=== PATIENT | female | born 1960 | race Caucasian/White ===

== ENCOUNTER 2023-09-01 09:45 | Outpatient (RCR) | payer OTHER, SELFPAY ==
--- NOTE | 2023-06-22 10:25 | PT.OIE ---
Current Diagnoses Lateral epicondylitis, right elbow (06/22/23) Difficulty in walking, not elsewhere classified (06/22/23) Abnormal posture (06/22/23) Weakness (06/22/23) Visit Care Team Role Provider Type Ynes Wild PA-C Family Provider Advanced Patient Centered Care Specialist Primary Care Provider Specialty: Medical Address: [address] [place] [address], [id number] Email: Oscar Engle MD Attending Provider Physician Referring Provider Specialty: Orthopedics Orthopedic Surgery Address: [address] [place] [address], [address] Email: [email or web address] Physical Therapy Initial Evaluation PT-OP-A Visit Information Start: 06/09/23 13:31 Freq: Status: Active Protocol: Document 06/22/23 09:03 [facility] (Rec: 06/22/23 10:23 [facility] [id number]) Out-Patient Physical Therapy Visit Information Visit Information Visit Type Initial Evaluation Visit Start Time 09:07 Visit Stop Time 10:05 Visit Number 1/6 Number of CLEANER WINDOW Visits 0 PT-OP-B Current Condition Start: 06/09/23 13:31 Freq: Status: Active Protocol: Document 06/22/23 09:03 [facility] (Rec: 06/22/23 10:23 [facility] [id number]) Current Condition History of Current Condition Onset Date 4-5 months Current Complaints R lat elbow pain History of Current Condition Pt reports gradual onset of R lat elbow pain that is worsening. She denies neck pain or R shoulder pain. She wants to pickle ball. 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 Her elbow wakes her in the night and straightening it out is painful. When walking the park without poles, then it starts aching and graually will bring it up into a sling position. no other treatment done. Xray done. 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 Does do strength training classes and it typically doesn't bother her and only a couple of moves that bother it. She only uses the 6lb bar. Pt has plates in wrist d/t ulna and radius fx about 20 years ago. Treatment Goals Patient/Caregiver Goals allievate the pain, be able to hike w/o pain, cook w/o pain, sleep w/o pain PT-OP-C Subjective Start: 06/09/23 13:31 Freq: Status: Active Protocol: Document 06/22/23 09:03 [facility] (Rec: 06/22/23 10:23 [facility] [id number]) Patient Questionnaires Quick Dash- Upper Extremity Quick Dash UE Score 31.8 OP-PT Pain Assessment Location R elbow Pain Location Details R lat elbow Intensity 8 Scale Used Numeric (0 - 10) Description Aching,Sharp,With Movement Description- Other swollen Frequency Intermittent Pain Duration 30 min after advil; 10-15 min if smaller flare Radiating Location occ tingling into post hand mostly lat (thumb and 1st finger)-sleeping Variations/Patterns tingling in lat elbow/forarm Pain Aggravating Factors Walking Other Pain Aggravating Factors trekking poles,@ night then straigthen from bent,chopping/ stirring,bar ex Other Pain Alleviating Factors advil, stretch PT-OP-F Manual Assessment Start: 06/09/23 13:31 Freq: Status: Active Protocol: Document 06/22/23 09:03 [facility] (Rec: 06/22/23 10:23 [facility] [id number]) Manual Assessments Soft Tissue Assessment Soft Tissue Mobility Assessment tenderness to lat epicondyle and extensor tendons &mm bellies; tenderness to triceps distally PT-OP-K Range of Motion Start: 06/09/23 13:31 Freq: Status: Active Protocol: Document 06/22/23 09:03 [facility] (Rec: 06/22/23 10:23 [facility] [id number]) Shoulder Goniometric Range of Motion Shoulder ROM Limitations Comments dec ER R; IR behind back painful R at T7; T5 L no pain; IR at 90 painful R Elbow/Forearm Range of Motion Elbow/Forearm Right Active Elbow Flexion (degrees) 141 Elbow Extension (degrees) 0 Pronation (degrees) 84 Supination (degrees) 92 Comments pain flex & pronation Left Active Elbow Flexion (degrees) 152 Elbow Hyperextension 2 Pronation (degrees) 90 Supination (degrees) 94 Wrist Goniometric Range of Motion ROM Limitations Comments WFL R but pain w/radial deviation and ext of wrist PT-OP-L Special Tests Start: 06/09/23 13:31 Freq: Status: Active Protocol: Document 06/22/23 09:03 [facility] (Rec: 06/22/23 10:23 [facility] [id number]) Special Tests Elbow Special Tests 3rd digit ext Comments neg cozens Comments positive Medeiros Comments positve Neural Special Tests- Upper Body Median Nerve Tension Test Results R positive Radial Nerve Tension Comments neg R Ulnar Nerve Tension Comments neg R PT-OP-M Strength Start: 06/09/23 13:31 Freq: Status: Active Protocol: Document 06/22/23 09:03 [facility] (Rec: 06/22/23 10:23 [facility] [id number]) Shoulder Strength Shoulder Manual Muscle Testing Right Flexion 4+ Good+ Extension 4+ Good+ Abduction (C5) 4+ Good+ External Rotation 3+ Fair+ Internal Rotation 4- Good- Comments pain w/rotations Left Flexion 5 Normal Extension 5 Normal Abduction (C5) 5 Normal External Rotation 4- Good- Internal Rotation 5 Normal Elbow/Forearm Strength Elbow and Forearm Manual Muscle Testing Right Flexion (C6) 5 Normal Extension (C7) 3+ Fair+ Pronation 4- Good- Supination 5 Normal Comments pain w/flex in pronation but not in supination; pain w/ pronation Left Flexion (C6) 5 Normal Extension (C7) 5 Normal Pronation 5 Normal Supination 5 Normal Wrist Strength Wrist Manual Muscle Testing Right Flexion (C7) 4 Good Extension (C6) 3+ Fair+ Ulnar Deviation 5 Normal Radial Deviation 3+ Fair+ Comments pain ext and radial deviation Left Flexion (C7) 5 Normal Extension (C6) 5 Normal Ulnar Deviation 5 Normal Radial Deviation 5 Normal Hand Senior Ios Software Engineer/Pinch Strength Hand Dominance Hand Dominance Right Hand Strength Right Comments 12 kg, 9 kg pain Left Comments 25kg, 22kg PT-OP-R Modalities Start: 06/09/23 13:31 Freq: Status: Active Protocol: Document 06/22/23 09:03 [facility] (Rec: 06/22/23 10:23 [facility] [id number]) Hot Pack/Cold Pack Treatment Cold Pack Location R elbow PT-OP-T Assessment and Plan Start: 06/09/23 13:31 Freq: Status: Active Protocol: Document 06/22/23 09:03 [facility] (Rec: 06/22/23 10:23 [facility] [id number]) Physical Therapy Assessment Rehab Potential Rehabilitation Potential Good Evaluation Complexity Number of Personal Factors/Comorbidities 1-2 Number of Body Systems Impaired 4 or More Clinical Presentation at Evaluation Evolving Impairments Impairments Activity Tolerance,Balance, Functional Activities, Functional Mobility,Gait,Pain, Posture,ROM,Soft Tissue Mobility,Strength Other Concerns Barriers to Rehabilitation limited by [employer] number of visits Goals ROM Alf Goal (LTG) pt will have full pronation and IR behind back to at least T5 w/o pain LTG Duration 09/07 strength Short Term Goal (STG) Pt will be indep w/HEP and improve floor trader strength to at least 17kg STG Duration 08/02 Alf Goal (LTG) Pt will score 5/5 on all UE MMT on RUE w/o inc pain to allow ease w/activity LTG Duration 09/13 activities Short Term Goal (STG) Pt will be able to walk w/o inc pain in elbow (w/o trekking poles) STG Duration 08/02 Alf Goal (LTG) Pt will be able to hike and do all cooking activities w/o inc pain greater than 2/10 LTG Duration 09/13 quick dash Impairment 31.8 Short Term Goal (STG) Pt will improve score of quick dash to no greater than 20 to show improved functional ability. STG Duration 07/30 X Ray Developing Machine Operator Goal (LTG) Pt will improve score of quick dash to no greater than 6 to show improved functional ability. LTG Duration 09/13 Assessment Summary Assessment Pt presents w/s/s and dx of lateral epicondylitis along w/ positive testing for med n tension. She also has pain w/ palpation of triceps and activation of triceps which indicates possible triceps tendinosis also. W/further discussion, likely started during a trip where she was hiking for 6 weeks w/lots of pole use w/dec hiking piror to this along w/having to lift everything and set up camp by herself d/t her injuring his back. She has weakness w/gripand w/wrist ext /radial devaition and long elbow ext and IR of shoulder w /pain. She would benefit from skilled PT to improve activity level. Physical Therapy Plan Frequency and Duration Frequency of Treatment 1-2x/wk Duration of treatment (weeks) 12 Plan of Care Start Date 06/22/23 Plan of Care End Date 09/14/23 Therapeutic Interventions Therapeutic Interventions Gait Training,Home Exercise Program,Joint Mobilizations, Manual Therapy,Neuromuscular Re-education,Orthotic/ Prosthetic Management,Patient/ Caregiver Education,Self-Care/ Home Management,Soft Tissue Mobilization,Taping, Therapeutic Activities, Therapeutic Exercises Modalities Cold Pack/Ice Massage,Electric Stimulation,Hot Packs, Infrared Therapy,Iontophoresis ,Ultrasound Other Therapeutic Interventions dexomethazone ionto Next Visit Focus/Plan Next Note Type Treatment Note Next Visit Plan US & Laser to R elbow(lat epicondyle, over ext tendons, lat, med &mid tricep; try eccentric wrist ext and radial deviation & triceps, light stretching to triceps manual to extensor tendons & triceps and wrist and elbow mobiltiy; circumfrential w/IR
--- NOTE | 2023-06-22 10:25 | PT.OPPOC ---
Physical, Occupational & Speech Therapy At [facility] Current Diagnoses Lateral epicondylitis, right elbow (06/22/23) Difficulty in walking, not elsewhere classified (06/22/23) Abnormal posture (06/22/23) Weakness (06/22/23) Visit Care Team Role Provider Type Ynes Wild PA-C Family Provider Advanced Slumber Room Attendant Primary Care Provider Specialty: Medical Address: [address] [place] [address], [id number] Email: Oscar Engle MD Attending Provider Physician Referring Provider Specialty: Orthopedics Orthopedic Surgery Address: [address] [place] [address], [address] Email: [email or web address] Plan Of Care PT-OP-T Assessment and Plan Start: 06/09/23 13:31 Freq: Status: Active Protocol: Document 06/22/23 09:03 [facility] (Rec: 06/22/23 10:23 [facility] [id number]) Physical Therapy Assessment Rehab Potential Rehabilitation Potential Good Evaluation Complexity Number of Personal Factors/Comorbidities 1-2 Number of Body Systems Impaired 4 or More Clinical Presentation at Evaluation Evolving Impairments Impairments Activity Tolerance,Balance, Functional Activities, Functional Mobility,Gait,Pain, Posture,ROM,Soft Tissue Mobility,Strength Other Concerns Barriers to Rehabilitation limited by [employer] number of visits Goals ROM Refrigerating Machine Operator Goal (LTG) pt will have full pronation and IR behind back to at least T5 w/o pain LTG Duration 09/07 strength Short Term Goal (STG) Pt will be indep w/HEP and improve senior web analyst strength to at least 17kg STG Duration 08/02 Senior Living Goal (LTG) Pt will score 5/5 on all UE MMT on RUE w/o inc pain to allow ease w/activity LTG Duration 09/13 activities Short Term Goal (STG) Pt will be able to walk w/o inc pain in elbow (w/o trekking poles) STG Duration 08/02 Senior Living Goal (LTG) Pt will be able to hike and do all cooking activities w/o inc pain greater than 2/10 LTG Duration 09/13 quick dash Impairment 31.8 Short Term Goal (STG) Pt will improve score of quick dash to no greater than 20 to show improved functional ability. STG Duration 07/30 Senior Living Goal (LTG) Pt will improve score of quick dash to no greater than 6 to show improved functional ability. LTG Duration 09/13 Assessment Summary Assessment Pt presents w/s/s and dx of lateral epicondylitis along w/ positive testing for med n tension. She also has pain w/ palpation of triceps and activation of triceps which indicates possible triceps tendinosis also. W/further discussion, likely started during a trip where she was hiking for 6 weeks w/lots of pole use w/dec hiking piror to this along w/having to lift everything and set up camp by herself d/t her injuring his back. She has weakness w/gripand w/wrist ext /radial devaition and long elbow ext and IR of shoulder w /pain. She would benefit from skilled PT to improve activity level. Physical Therapy Plan Frequency and Duration Frequency of Treatment 1-2x/wk Duration of treatment (weeks) 12 Plan of Care Start Date 06/22/23 Plan of Care End Date 09/14/23 Therapeutic Interventions Therapeutic Interventions Gait Training,Home Exercise Program,Joint Mobilizations, Manual Therapy,Neuromuscular Re-education,Orthotic/ Prosthetic Management,Patient/ Caregiver Education,Self-Care/ Home Management,Soft Tissue Mobilization,Taping, Therapeutic Activities, Therapeutic Exercises Modalities Cold Pack/Ice Massage,Electric Stimulation,Hot Packs, Infrared Therapy,Iontophoresis ,Ultrasound Other Therapeutic Interventions dexomethazone ionto Next Visit Focus/Plan Next Note Type Treatment Note Next Visit Plan US & Laser to R elbow(lat epicondyle, over ext tendons, lat, med &mid tricep; try eccentric wrist ext and radial deviation & triceps, light stretching to triceps manual to extensor tendons & triceps and wrist and elbow mobiltiy; circumfrential w/IR Plan of Care Dates Plan of Care Start Date 06/22/23 Plan of Care End Date 09/14/23 Electronically Signed by: Yvonne Allen, PT 06/22/23 1569 If you are in agreement with this Plan of Care, please return a signed and dated copy. I have reviewed this Plan of Care and certify that the skilled therapy services above are required to meet the patient?s needs. Physician Signature Date Printed Name and Credentials Clinical Instructor Signature Printed Name and Credentials
--- NOTE | 2023-06-30 09:49 | PT.OTN ---
Current Diagnoses Lateral epicondylitis, right elbow (06/30/23) Difficulty in walking, not elsewhere classified (06/30/23) Abnormal posture (06/30/23) Weakness (06/30/23) Physical Therapy Treatment Note PT-OP-A Visit Information Start: 06/09/23 13:31 Freq: Status: Active Protocol: Document 06/30/23 09:04 [facility] (Rec: 06/30/23 09:52 SP [id number]) Out-Patient Physical Therapy Visit Information Visit Information Visit Type Treatment Note Visit Start Time 09:04 Visit Stop Time 09:49 Visit Number 2/6 Number of TERRAZZO POLISHER Visits 1 PT-OP-B Current Condition Start: 06/09/23 13:31 Freq: Status: Active Protocol: Document 06/22/23 09:03 [facility] (Rec: 06/22/23 10:23 [facility] [id number]) Current Condition History of Current Condition Onset Date 4-5 months Current Complaints R lat elbow pain History of Current Condition Pt reports gradual onset of R lat elbow pain that is worsening. She denies neck pain or R shoulder pain. She wants to pickle ball. 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 Her elbow wakes her in the night and straightening it out is painful. When walking the park without poles, then it starts aching and graually will bring it up into a sling position. no other treatment done. Xray done. 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 Does do strength training classes and it typically doesn't bother her and only a couple of moves that bother it. She only uses the 6lb bar. Pt has plates in wrist d/t ulna and radius fx about 20 years ago. Treatment Goals Patient/Caregiver Goals allievate the pain, be able to hike w/o pain, cook w/o pain, sleep w/o pain PT-OP-C Subjective Start: 06/09/23 13:31 Freq: Status: Active Protocol: Document 06/30/23 09:04 [facility] (Rec: 06/30/23 09:52 SP [id number]) OP-PT Subjective Patient Comments Patient Comments Pt reports lateral epicondyle R tender. PT-OP-F Manual Assessment Start: 06/09/23 13:31 Freq: Status: Active Protocol: Document 06/22/23 09:03 [facility] (Rec: 06/22/23 10:23 [facility] [id number]) Manual Assessments Soft Tissue Assessment Soft Tissue Mobility Assessment tenderness to lat epicondyle and extensor tendons &mm bellies; tenderness to triceps distally PT-OP-K Range of Motion Start: 06/09/23 13:31 Freq: Status: Active Protocol: Document 06/22/23 09:03 [facility] (Rec: 06/22/23 10:23 [facility] [id number]) Shoulder Goniometric Range of Motion Shoulder ROM Limitations Comments dec ER R; IR behind back painful R at T7; T5 L no pain; IR at 90 painful R Elbow/Forearm Range of Motion Elbow/Forearm Right Active Elbow Flexion (degrees) 141 Elbow Extension (degrees) 0 Pronation (degrees) 84 Supination (degrees) 92 Comments pain flex & pronation Left Active Elbow Flexion (degrees) 152 Elbow Hyperextension 2 Pronation (degrees) 90 Supination (degrees) 94 Wrist Goniometric Range of Motion ROM Limitations Comments WFL R but pain w/radial deviation and ext of wrist PT-OP-L Special Tests Start: 06/09/23 13:31 Freq: Status: Active Protocol: Document 06/22/23 09:03 [facility] (Rec: 06/22/23 10:23 [facility] [id number]) Special Tests Elbow Special Tests 3rd digit ext Comments neg cozens Comments positive Medeiros Comments positve Neural Special Tests- Upper Body Median Nerve Tension Test Results R positive Radial Nerve Tension Comments neg R Ulnar Nerve Tension Comments neg R PT-OP-M Strength Start: 06/09/23 13:31 Freq: Status: Active Protocol: Document 06/22/23 09:03 [facility] (Rec: 06/22/23 10:23 [facility] [id number]) Shoulder Strength Shoulder Manual Muscle Testing Right Flexion 4+ Good+ Extension 4+ Good+ Abduction (C5) 4+ Good+ External Rotation 3+ Fair+ Internal Rotation 4- Good- Comments pain w/rotations Left Flexion 5 Normal Extension 5 Normal Abduction (C5) 5 Normal External Rotation 4- Good- Internal Rotation 5 Normal Elbow/Forearm Strength Elbow and Forearm Manual Muscle Testing Right Flexion (C6) 5 Normal Extension (C7) 3+ Fair+ Pronation 4- Good- Supination 5 Normal Comments pain w/flex in pronation but not in supination; pain w/ pronation Left Flexion (C6) 5 Normal Extension (C7) 5 Normal Pronation 5 Normal Supination 5 Normal Wrist Strength Wrist Manual Muscle Testing Right Flexion (C7) 4 Good Extension (C6) 3+ Fair+ Ulnar Deviation 5 Normal Radial Deviation 3+ Fair+ Comments pain ext and radial deviation Left Flexion (C7) 5 Normal Extension (C6) 5 Normal Ulnar Deviation 5 Normal Radial Deviation 5 Normal Hand Crew Member/Pinch Strength Hand Dominance Hand Dominance Right Hand Strength Right Comments 12 kg, 9 kg pain Left Comments 25kg, 22kg PT-OP-Q Treatments Start: 06/09/23 13:31 Freq: Status: Active Protocol: Document 06/30/23 09:04 SP (Rec: 06/30/23 09:52 SP [id number]) Therapeutic Exercises Sitting Exercises R eccentric flexion Sitting Exercise Name added to HEP: ext/eccentric flexion and RD Side right Resistance AROM>1# DB Reps/Minutes x10 each Comments pnfree reported R forearm, CET stretch Sitting Exercise Name added to HEP Side right Resistance [place] FROST RUE gentle stretch Reps/Minutes 15 SH x3 reps Comments pnfree reported Manual Therapy Treatment Soft Tissue Mobilization R elbow Body Location forearm extensors, CET Mobilization Type Myofascial Release,Sustained Pressure,Other Comments STMs, gentle sustained pressure PROM eccentric flexion Joint Mobilizations elbow mob Joint ulna Direction lat, inferior Grade II Body Position Supine Comments towel under distal humerus PT-OP-R Modalities Start: 06/09/23 13:31 Freq: Status: Active Protocol: Document 06/30/23 09:04 SP (Rec: 06/30/23 09:52 SP [id number]) Infrared Treatment Treatment Laser Body Position Sidelying Program or Protocal tendon/muscle spasms Comments R lat epicondyle, over ext tendons, lat, med &mid tricep PT-OP-T Assessment and Plan Start: 06/09/23 13:31 Freq: Status: Active Protocol: Document 06/30/23 09:04 SP (Rec: 06/30/23 09:52 SP [id number]) Physical Therapy Assessment Goals ROM Snf Goal (LTG) pt will have full pronation and IR behind back to at least T5 w/o pain LTG Duration 620 strength Short Term Goal (STG) Pt will be indep w/HEP and improve barrel ribs solderer strength to at least 17kg STG Duration 08/02 Senior Asset Manager Goal (LTG) Pt will score 5/5 on all UE MMT on RUE w/o inc pain to allow ease w/activity LTG Duration 09/13 activities Short Term Goal (STG) Pt will be able to walk w/o inc pain in elbow (w/o trekking poles) STG Duration 08/02 Snf Goal (LTG) Pt will be able to hike and do all cooking activities w/o inc pain greater than 2/10 LTG Duration 09/13 quick dash Impairment 31.8 Short Term Goal (STG) Pt will improve score of quick dash to no greater than 20 to show improved functional ability. STG Duration 07/30 Snf Goal (LTG) Pt will improve score of quick dash to no greater than 6 to show improved functional ability. LTG Duration 09/13 Assessment Summary Assessment Pt good response to manual and self understanding how can apply. Reports pnfree during initiated Therex. Physical Therapy Plan Frequency and Duration Frequency of Treatment 1-2x/wk Duration of treatment (weeks) 12 Plan of Care Start Date 06/22/23 Plan of Care End Date 09/14/23 Therapeutic Interventions Therapeutic Interventions Gait Training,Home Exercise Program,Joint Mobilizations, Manual Therapy,Neuromuscular Re-education,Orthotic/ Prosthetic Management,Patient/ Caregiver Education,Self-Care/ Home Management,Soft Tissue Mobilization,Taping, Therapeutic Activities, Therapeutic Exercises Modalities Cold Pack/Ice Massage,Electric Stimulation,Hot Packs, Infrared Therapy,Iontophoresis ,Ultrasound Other Therapeutic Interventions dexomethazone ionto Next Visit Focus/Plan Next Note Type Treatment Note Next Visit Plan Ask response to Laser to R elbow and eccentric wrist ext and radial deviation, manual extensor tendons. Next tx: trial triceps, light stretching to triceps, continue manual to extensor tendons & triceps and wrist and elbow mobiltiy; circumfrential w/IR
--- NOTE | 2023-07-07 10:34 | PT.OTN ---
Current Diagnoses Lateral epicondylitis, right elbow (07/07/23) Difficulty in walking, not elsewhere classified (07/07/23) Abnormal posture (07/07/23) Weakness (07/07/23) Physical Therapy Treatment Note PT-OP-A Visit Information Start: 06/09/23 13:31 Freq: Status: Active Protocol: Document 07/07/23 09:06 [facility] (Rec: 07/07/23 10:34 [facility] [id number]) Out-Patient Physical Therapy Visit Information Visit Information Visit Type Treatment Note Visit Start Time 09:05 Visit Stop Time 09:45 Visit Number 3/6 Number of CLIENT LIAISON Visits 0 PT-OP-B Current Condition Start: 06/09/23 13:31 Freq: Status: Active Protocol: Document 06/22/23 09:03 [facility] (Rec: 06/22/23 10:23 [facility] [id number]) Current Condition History of Current Condition Onset Date 4-5 months Current Complaints R lat elbow pain History of Current Condition Pt reports gradual onset of R lat elbow pain that is worsening. She denies neck pain or R shoulder pain. She wants to pickle ball. 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 Her elbow wakes her in the night and straightening it out is painful. When walking the park without poles, then it starts aching and graually will bring it up into a sling position. no other treatment done. Xray done. 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 Does do strength training classes and it typically doesn't bother her and only a couple of moves that bother it. She only uses the 6lb bar. Pt has plates in wrist d/t ulna and radius fx about 20 years ago. Treatment Goals Patient/Caregiver Goals allievate the pain, be able to hike w/o pain, cook w/o pain, sleep w/o pain PT-OP-C Subjective Start: 06/09/23 13:31 Freq: Status: Active Protocol: Document 07/07/23 09:06 [facility] (Rec: 07/07/23 10:34 [facility] [id number]) OP-PT Subjective Patient Comments Patient Comments Pt reports she feels like PT is helping. Helped move her son and idd okay w/some aching . DId put some furniture together and felt pumped PT-OP-F Manual Assessment Start: 06/09/23 13:31 Freq: Status: Active Protocol: Document 06/22/23 09:03 [facility] (Rec: 06/22/23 10:23 [facility] [id number]) Manual Assessments Soft Tissue Assessment Soft Tissue Mobility Assessment tenderness to lat epicondyle and extensor tendons &mm bellies; tenderness to triceps distally PT-OP-K Range of Motion Start: 06/09/23 13:31 Freq: Status: Active Protocol: Document 06/22/23 09:03 [facility] (Rec: 06/22/23 10:23 [facility] [id number]) Shoulder Goniometric Range of Motion Shoulder ROM Limitations Comments dec ER R; IR behind back painful R at T7; T5 L no pain; IR at 90 painful R Elbow/Forearm Range of Motion Elbow/Forearm Right Active Elbow Flexion (degrees) 141 Elbow Extension (degrees) 0 Pronation (degrees) 84 Supination (degrees) 92 Comments pain flex & pronation Left Active Elbow Flexion (degrees) 152 Elbow Hyperextension 2 Pronation (degrees) 90 Supination (degrees) 94 Wrist Goniometric Range of Motion ROM Limitations Comments WFL R but pain w/radial deviation and ext of wrist PT-OP-L Special Tests Start: 06/09/23 13:31 Freq: Status: Active Protocol: Document 06/22/23 09:03 [facility] (Rec: 06/22/23 10:23 [facility] [id number]) Special Tests Elbow Special Tests 3rd digit ext Comments neg cozens Comments positive Medeiros Comments positve Neural Special Tests- Upper Body Median Nerve Tension Test Results R positive Radial Nerve Tension Comments neg R Ulnar Nerve Tension Comments neg R PT-OP-M Strength Start: 06/09/23 13:31 Freq: Status: Active Protocol: Document 06/22/23 09:03 [facility] (Rec: 06/22/23 10:23 [facility] [id number]) Shoulder Strength Shoulder Manual Muscle Testing Right Flexion 4+ Good+ Extension 4+ Good+ Abduction (C5) 4+ Good+ External Rotation 3+ Fair+ Internal Rotation 4- Good- Comments pain w/rotations Left Flexion 5 Normal Extension 5 Normal Abduction (C5) 5 Normal External Rotation 4- Good- Internal Rotation 5 Normal Elbow/Forearm Strength Elbow and Forearm Manual Muscle Testing Right Flexion (C6) 5 Normal Extension (C7) 3+ Fair+ Pronation 4- Good- Supination 5 Normal Comments pain w/flex in pronation but not in supination; pain w/ pronation Left Flexion (C6) 5 Normal Extension (C7) 5 Normal Pronation 5 Normal Supination 5 Normal Wrist Strength Wrist Manual Muscle Testing Right Flexion (C7) 4 Good Extension (C6) 3+ Fair+ Ulnar Deviation 5 Normal Radial Deviation 3+ Fair+ Comments pain ext and radial deviation Left Flexion (C7) 5 Normal Extension (C6) 5 Normal Ulnar Deviation 5 Normal Radial Deviation 5 Normal Hand Brim Buster/Pinch Strength Hand Dominance Hand Dominance Right Hand Strength Right Comments 12 kg, 9 kg pain Left Comments 25kg, 22kg PT-OP-Q Treatments Start: 06/09/23 13:31 Freq: Status: Active Protocol: Document 07/07/23 09:06 [facility] (Rec: 07/07/23 10:34 [facility] [id number]) Therapeutic Exercises Sitting Exercises R eccentric flexion Sitting Exercise Name full range ext, radial deviation Side right Resistance 1# DB Reps/Minutes x10 each Comments pnfree reported R forearm, CET stretch Sitting Exercise Name added to HEP Side right Reps/Minutes 15 SH Comments pnfree reported Standing Exercises triceps stretch Side right Reps/Minutes 30 sec ext Standing Exercise Name triceps Side bilateral Equipment Used green tband Reps/Minutes 10 Manual Therapy Treatment Soft Tissue Mobilization R elbow Body Location forearm extensors, CET & tricep tendon Mobilization Type Myofascial Release,Rolling, Sustained Pressure,Other Comments STMs, gentle sustained pressure PROM eccentric flexion Joint Mobilizations radioulnar Comments AP radius distal FM AP and PA proximal radius FM elbow mob Comments distraction and on axis ulna Taping 1 Type of Tape Kinesio Tape Comments Y strip from wrist to lat ep and y strip lat epicondyle PT-OP-R Modalities Start: 06/09/23 13:31 Freq: Status: Active Protocol: Document 07/07/23 09:06 [facility] (Rec: 07/07/23 10:34 [facility] [id number]) Infrared Treatment Treatment Laser Body Position Sitting Program or Protocal tendon/muscle spasms Comments R lat epicondyle, over ext tendons, lat, med &mid tricep PT-OP-T Assessment and Plan Start: 06/09/23 13:31 Freq: Status: Active Protocol: Document 07/07/23 09:06 [facility] (Rec: 07/07/23 10:34 [facility] [id number]) Physical Therapy Assessment Goals ROM Correction Goal (LTG) pt will have full pronation and IR behind back to at least T5 w/o pain LTG Duration 09/07 strength Short Term Goal (STG) Pt will be indep w/HEP and improve director insurance strength to at least 17kg STG Duration 08/02 Correction Goal (LTG) Pt will score 5/5 on all UE MMT on RUE w/o inc pain to allow ease w/activity LTG Duration 09/13 activities Short Term Goal (STG) Pt will be able to walk w/o inc pain in elbow (w/o trekking poles) STG Duration 08/02 Dry Janitor Goal (LTG) Pt will be able to hike and do all cooking activities w/o inc pain greater than 2/10 LTG Duration 09/13 quick dash Impairment 31.8 Short Term Goal (STG) Pt will improve score of quick dash to no greater than 20 to show improved functional ability. STG Duration 07/30 Dry Janitor Goal (LTG) Pt will improve score of quick dash to no greater than 6 to show improved functional ability. LTG Duration 09/13 Assessment Summary Assessment no pain w/new exercises and very min cues. improved mobility of tissue and no c/o paind uring session Physical Therapy Plan Next Visit Focus/Plan Next Note Type Treatment Note Next Visit Plan review tricep strength, light stretching to triceps, continue manual to extensor tendons & triceps and wrist and elbow mobiltiy; circumfrential w/IR
--- NOTE | 2023-07-13 16:23 | PT.OTN ---
Current Diagnoses Lateral epicondylitis, right elbow (07/13/23) Difficulty in walking, not elsewhere classified (07/13/23) Abnormal posture (07/13/23) Weakness (07/13/23) Physical Therapy Treatment Note PT-OP-A Visit Information Start: 06/09/23 13:31 Freq: Status: Active Protocol: Document 07/13/23 12:49 [facility] (Rec: 07/13/23 16:23 [facility] [id number]) Out-Patient Physical Therapy Visit Information Visit Information Visit Type Treatment Note Visit Note Visit [email or web address] Access [email or web address]: [email or web address] Visit Start Time 14:33 Visit Stop Time 15:15 Visit Number 4/6 Number of MACHINE BANDER AND CELLOPHANER Visits 1 PT-OP-B Current Condition Start: 06/09/23 13:31 Freq: Status: Active Protocol: Document 06/22/23 09:03 [facility] (Rec: 06/22/23 10:23 [facility] [id number]) Current Condition History of Current Condition Onset Date 4-5 months Current Complaints R lat elbow pain History of Current Condition Pt reports gradual onset of R lat elbow pain that is worsening. She denies neck pain or R shoulder pain. She wants to pickle ball. 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 Her elbow wakes her in the night and straightening it out is painful. When walking the park without poles, then it starts aching and graually will bring it up into a sling position. no other treatment done. Xray done. 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 Does do strength training classes and it typically doesn't bother her and only a couple of moves that bother it. She only uses the 6lb bar. Pt has plates in wrist d/t ulna and radius fx about 20 years ago. Treatment Goals Patient/Caregiver Goals allievate the pain, be able to hike w/o pain, cook w/o pain, sleep w/o pain PT-OP-C Subjective Start: 06/09/23 13:31 Freq: Status: Active Protocol: Document 07/13/23 12:49 [facility] (Rec: 07/13/23 16:23 [facility] [id number]) OP-PT Subjective Patient Comments Patient Comments Patient reports that she is not having the pain waking her up anymore, but the elbow does still hurt with certain movements/lifting items from pantry. Gripping and lifting a 5 lb weight at counter height increases pain start of session. PT-OP-F Manual Assessment Start: 06/09/23 13:31 Freq: Status: Active Protocol: Document 06/22/23 09:03 [facility] (Rec: 06/22/23 10:23 [facility] [id number]) Manual Assessments Soft Tissue Assessment Soft Tissue Mobility Assessment tenderness to lat epicondyle and extensor tendons &mm bellies; tenderness to triceps distally PT-OP-K Range of Motion Start: 06/09/23 13:31 Freq: Status: Active Protocol: Document 06/22/23 09:03 [facility] (Rec: 06/22/23 10:23 [facility] [id number]) Shoulder Goniometric Range of Motion Shoulder ROM Limitations Comments dec ER R; IR behind back painful R at T7; T5 L no pain; IR at 90 painful R Elbow/Forearm Range of Motion Elbow/Forearm Right Active Elbow Flexion (degrees) 141 Elbow Extension (degrees) 0 Pronation (degrees) 84 Supination (degrees) 92 Comments pain flex & pronation Left Active Elbow Flexion (degrees) 152 Elbow Hyperextension 2 Pronation (degrees) 90 Supination (degrees) 94 Wrist Goniometric Range of Motion ROM Limitations Comments WFL R but pain w/radial deviation and ext of wrist PT-OP-L Special Tests Start: 06/09/23 13:31 Freq: Status: Active Protocol: Document 06/22/23 09:03 [facility] (Rec: 06/22/23 10:23 [facility] [id number]) Special Tests Elbow Special Tests 3rd digit ext Comments neg cozens Comments positive Medeiros Comments positve Neural Special Tests- Upper Body Median Nerve Tension Test Results R positive Radial Nerve Tension Comments neg R Ulnar Nerve Tension Comments neg R PT-OP-M Strength Start: 06/09/23 13:31 Freq: Status: Active Protocol: Document 06/22/23 09:03 [facility] (Rec: 06/22/23 10:23 [facility] [id number]) Shoulder Strength Shoulder Manual Muscle Testing Right Flexion 4+ Good+ Extension 4+ Good+ Abduction (C5) 4+ Good+ External Rotation 3+ Fair+ Internal Rotation 4- Good- Comments pain w/rotations Left Flexion 5 Normal Extension 5 Normal Abduction (C5) 5 Normal External Rotation 4- Good- Internal Rotation 5 Normal Elbow/Forearm Strength Elbow and Forearm Manual Muscle Testing Right Flexion (C6) 5 Normal Extension (C7) 3+ Fair+ Pronation 4- Good- Supination 5 Normal Comments pain w/flex in pronation but not in supination; pain w/ pronation Left Flexion (C6) 5 Normal Extension (C7) 5 Normal Pronation 5 Normal Supination 5 Normal Wrist Strength Wrist Manual Muscle Testing Right Flexion (C7) 4 Good Extension (C6) 3+ Fair+ Ulnar Deviation 5 Normal Radial Deviation 3+ Fair+ Comments pain ext and radial deviation Left Flexion (C7) 5 Normal Extension (C6) 5 Normal Ulnar Deviation 5 Normal Radial Deviation 5 Normal Hand Environmental Compliance Engineer/Pinch Strength Hand Dominance Hand Dominance Right Hand Strength Right Comments 12 kg, 9 kg pain Left Comments 25kg, 22kg PT-OP-Q Treatments Start: 06/09/23 13:31 Freq: Status: Active Protocol: Document 07/13/23 12:49 [facility] (Rec: 07/13/23 16:23 [facility] [id number]) Therapeutic Exercises Sitting Exercises wrist extension stretch Side right Reps/Minutes 30 sec X 2 Comments verbal cues pronation/supination hammer Side right Resistance hammer held mid way Reps/Minutes X10 Comments reports pain with pronation holding end of hammer on int trial Standing Exercises side sit to upright Side bilateral Reps/Minutes X10 X 2 Comments verbal cues triceps stretch Side right Reps/Minutes 30 sec ext Standing Exercise Name triceps Reps/Minutes X1 Comments reports increased pain with the movement, comments band is too short Manual Therapy Treatment Soft Tissue Mobilization lateral forearm and triceps Body Location right UE also added biceps Mobilization Type Cross-Friction,Rolling Intensity/Depth Moderate Body Position Sitting Joint Mobilizations Mulligan with movement Joint right elbow Grade III Body Position Hooklying Reps/Duration X10 Comments with gripping Taping 1 Type of Tape Kinesio Tape Comments Y strip from wrist to lat ep and y strip lat epicondyle Self-Care/Home Management Treatment Activities Self-Care/Home Management Activities side sit to upright and pronation/supination with hammer to HEP PT-OP-R Modalities Start: 06/09/23 13:31 Freq: Status: Active Protocol: Document 07/13/23 12:49 [facility] (Rec: 04/24/24 16:23 [facility] [id number]) Infrared Treatment Treatment Laser Body Position Hooklying Program or Protocal tendon/pain/chronic Comments lat epicondyle, distal triceps and wrist ext tendons PT-OP-T Assessment and Plan Start: 06/09/23 13:31 Freq: Status: Active Protocol: Document 07/13/23 12:49 [facility] (Rec: 07/13/23 16:23 [facility] [id number]) Physical Therapy Assessment Goals ROM Snf Goal (LTG) pt will have full pronation and IR behind back to at least T5 w/o pain LTG Duration 09/07 strength Short Term Goal (STG) Pt will be indep w/HEP and improve plumber's assistant strength to at least 17kg STG Duration 08/02 Nursery Technician Goal (LTG) Pt will score 5/5 on all UE MMT on RUE w/o inc pain to allow ease w/activity LTG Duration 09/13 activities Short Term Goal (STG) Pt will be able to walk w/o inc pain in elbow (w/o trekking poles) STG Duration 08/02 Snf Goal (LTG) Pt will be able to hike and do all cooking activities w/o inc pain greater than 2/10 LTG Duration 09/13 quick dash Impairment 31.8 Short Term Goal (STG) Pt will improve score of quick dash to no greater than 20 to show improved functional ability. STG Duration 07/30 Nursery Technician Goal (LTG) Pt will improve score of quick dash to no greater than 6 to show improved functional ability. LTG Duration 09/13 Assessment Summary Assessment Patient reports less pain with gripping and lifting 5 lb weight end of session. Noted area of increased swelling medial ant forearm right UE during taping. Physical Therapy Plan Frequency and Duration Frequency of Treatment 1-2x/wk Duration of treatment (weeks) 12 Plan of Care Start Date 06/22/23 Plan of Care End Date 09/14/23 Next Visit Focus/Plan Next Note Type Treatment Note Next Visit Plan review tricep strength, light stretching to triceps, continue manual to extensor tendons & triceps and wrist and elbow mobiltiy; circumfrential w/IR STM to medial anterior elbow, assess tolerance to triceps ext with band, possibly 1 lb weight if band continues to increase pain.
--- NOTE | 2023-07-21 16:27 | PT.OTN ---
Current Diagnoses Lateral epicondylitis, right elbow (07/21/23) Difficulty in walking, not elsewhere classified (07/21/23) Abnormal posture (07/21/23) Weakness (07/21/23) Physical Therapy Treatment Note PT-OP-A Visit Information Start: 06/09/23 13:31 Freq: Status: Active Protocol: Document 07/21/23 12:57 AB (Rec: 07/21/23 16:27 AB [id number]) Out-Patient Physical Therapy Visit Information Visit Information Visit Type Treatment Note Visit Note Visit [email or web address] Access Code: [email or web address] Visit Start Time 14:33 Visit Stop Time 15:13 Visit Number 5/6 Number of MANAGER DATABASE Visits 2 PT-OP-B Current Condition Start: 06/09/23 13:31 Freq: Status: Active Protocol: Document 06/22/23 09:03 [facility] (Rec: 06/22/23 10:23 [facility] [id number]) Current Condition History of Current Condition Onset Date 4-5 months Current Complaints R lat elbow pain History of Current Condition Pt reports gradual onset of R lat elbow pain that is worsening. She denies neck pain or R shoulder pain. She wants to pickle ball. 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 Her elbow wakes her in the night and straightening it out is painful. When walking the park without poles, then it starts aching and graually will bring it up into a sling position. no other treatment done. Xray done. 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 Does do strength training classes and it typically doesn't bother her and only a couple of moves that bother it. She only uses the 6lb bar. Pt has plates in wrist d/t ulna and radius fx about 20 years ago. Treatment Goals Patient/Caregiver Goals allievate the pain, be able to hike w/o pain, cook w/o pain, sleep w/o pain PT-OP-C Subjective Start: 06/09/23 13:31 Freq: Status: Active Protocol: Document 07/21/23 12:57 AB (Rec: 07/21/23 16:27 AB [id number]) OP-PT Subjective Patient Comments Patient Comments Patient reports the tape wasn' t as tight and was less helpful. Patient reports over the week it was worse, comments she fell and braced herself with her arms, ( was outside hiking ) Patient reports she can feel it in her elbow when she companion but it is not the slicing pain. PT Yvonen Allen into session due to patient's report of fall. PT-OP-F Manual Assessment Start: 06/09/23 13:31 Freq: Status: Active Protocol: Document 06/22/23 09:03 [facility] (Rec: 06/22/23 10:23 [facility] [id number]) Manual Assessments Soft Tissue Assessment Soft Tissue Mobility Assessment tenderness to lat epicondyle and extensor tendons &mm bellies; tenderness to triceps distally PT-OP-K Range of Motion Start: 06/09/23 13:31 Freq: Status: Active Protocol: Document 06/22/23 09:03 [facility] (Rec: 06/22/23 10:23 [facility] [id number]) Shoulder Goniometric Range of Motion Shoulder ROM Limitations Comments dec ER R; IR behind back painful R at T7; T5 L no pain; IR at 90 painful R Elbow/Forearm Range of Motion Elbow/Forearm Right Active Elbow Flexion (degrees) 141 Elbow Extension (degrees) 0 Pronation (degrees) 84 Supination (degrees) 92 Comments pain flex & pronation Left Active Elbow Flexion (degrees) 152 Elbow Hyperextension 2 Pronation (degrees) 90 Supination (degrees) 94 Wrist Goniometric Range of Motion ROM Limitations Comments WFL R but pain w/radial deviation and ext of wrist PT-OP-L Special Tests Start: 06/09/23 13:31 Freq: Status: Active Protocol: Document 06/22/23 09:03 [facility] (Rec: 06/22/23 10:23 [facility] [id number]) Special Tests Elbow Special Tests 3rd digit ext Comments neg cozens Comments positive Medeiros Comments positve Neural Special Tests- Upper Body Median Nerve Tension Test Results R positive Radial Nerve Tension Comments neg R Ulnar Nerve Tension Comments neg R PT-OP-M Strength Start: 06/09/23 13:31 Freq: Status: Active Protocol: Document 06/22/23 09:03 [facility] (Rec: 06/22/23 10:23 [facility] [id number]) Shoulder Strength Shoulder Manual Muscle Testing Right Flexion 4+ Good+ Extension 4+ Good+ Abduction (C5) 4+ Good+ External Rotation 3+ Fair+ Internal Rotation 4- Good- Comments pain w/rotations Left Flexion 5 Normal Extension 5 Normal Abduction (C5) 5 Normal External Rotation 4- Good- Internal Rotation 5 Normal Elbow/Forearm Strength Elbow and Forearm Manual Muscle Testing Right Flexion (C6) 5 Normal Extension (C7) 3+ Fair+ Pronation 4- Good- Supination 5 Normal Comments pain w/flex in pronation but not in supination; pain w/ pronation Left Flexion (C6) 5 Normal Extension (C7) 5 Normal Pronation 5 Normal Supination 5 Normal Wrist Strength Wrist Manual Muscle Testing Right Flexion (C7) 4 Good Extension (C6) 3+ Fair+ Ulnar Deviation 5 Normal Radial Deviation 3+ Fair+ Comments pain ext and radial deviation Left Flexion (C7) 5 Normal Extension (C6) 5 Normal Ulnar Deviation 5 Normal Radial Deviation 5 Normal Hand Clean Out Driller/Pinch Strength Hand Dominance Hand Dominance Right Hand Strength Right Comments 12 kg, 9 kg pain Left Comments 25kg, 22kg PT-OP-Q Treatments Start: 06/09/23 13:31 Freq: Status: Active Protocol: Document 07/21/23 12:57 AB (Rec: 07/21/23 16:27 AB [id number]) Therapeutic Exercises Sitting Exercises AROM wrist extension, radial dev Side right Resistance 1lb Reps/Minutes X10 each wrist extension stretch Side right Reps/Minutes 30 sec X 2 Comments verbal cues pronation/supination hammer Side right Resistance hammer held nearly at the end Reps/Minutes X10 Comments able to perform sup and pron Standing Exercises triceps stretch Side right Reps/Minutes 30 sec X10 ext Standing Exercise Name triceps Equipment Used level one band and 1 lb weights Reps/Minutes X15 X2 band 10 X 2 1 lb Manual Therapy Treatment Soft Tissue Mobilization R elbow Body Location forearm extensors, CET & tricep tendon Mobilization Type Cross-Friction,Rolling, Sustained Pressure Intensity/Depth Moderate Joint Mobilizations Mulligan with movement Joint right elbow Grade III Body Position Hooklying Reps/Duration X10X3 Comments with gripping Taping 1 Type of Tape Kinesio Tape Comments Y strip from wrist to lat ep and y strip lat epicondyle Manual Techniques ice massage lateral elbow Body Location right elbow/wrist extensors Body Position Sitting Reps/Duration duration to numbness Comments skin WNL post PT-OP-R Modalities Start: 06/09/23 13:31 Freq: Status: Active Protocol: Document 07/13/23 12:49 AB (Rec: 07/13/23 16:23 AB [id number]) Infrared Treatment Treatment Laser Body Position Hooklying Program or Protocal tendon/pain/chronic Comments lat epicondyle, distal triceps and wrist ext tendons PT-OP-T Assessment and Plan Start: 06/09/23 13:31 Freq: Status: Active Protocol: Document 07/21/23 12:57 AB (Rec: 07/21/23 16:27 AB [id number]) Physical Therapy Assessment Goals ROM Home Supervisor Goal (LTG) pt will have full pronation and IR behind back to at least T5 w/o pain LTG Duration 09/07 strength Short Term Goal (STG) Pt will be indep w/HEP and improve social science analyst strength to at least 17kg STG Duration 08/02 Halfway Goal (LTG) Pt will score 5/5 on all UE MMT on RUE w/o inc pain to allow ease w/activity LTG Duration 09/13 activities Short Term Goal (STG) Pt will be able to walk w/o inc pain in elbow (w/o trekking poles) STG Duration 08/02 Home Supervisor Goal (LTG) Pt will be able to hike and do all cooking activities w/o inc pain greater than 2/10 LTG Duration 09/13 quick dash Impairment 31.8 Short Term Goal (STG) Pt will improve score of quick dash to no greater than 20 to show improved functional ability. STG Duration 07/30 Halfway Goal (LTG) Pt will improve score of quick dash to no greater than 6 to show improved functional ability. LTG Duration 09/13 Assessment Summary Assessment Patient reports pain lateral elbow with gripping is much better, tiny pain end of session. Physical Therapy Plan Frequency and Duration Frequency of Treatment 1-2x/wk Duration of treatment (weeks) 12 Plan of Care Start Date 06/22/23 Plan of Care End Date 09/14/23 Next Visit Focus/Plan Next Note Type Treatment Note Next Visit Plan review tricep strength, light stretching to triceps, continue manual to extensor tendons & triceps and wrist and elbow mobiltiy; circumfrential w/IR STM to medial anterior elbow, assess tolerance to triceps ext with band, possibly push up plus on wall
--- NOTE | 2023-07-28 12:47 | PT.OTN ---
Current Diagnoses Lateral epicondylitis, right elbow (07/28/23) Difficulty in walking, not elsewhere classified (07/28/23) Abnormal posture (07/28/23) Weakness (07/28/23) Physical Therapy Treatment Note PT-OP-A Visit Information Start: 06/09/23 13:31 Freq: Status: Active Protocol: Document 07/28/23 08:07 AB (Rec: 07/28/23 11:06 AB [id number]) Out-Patient Physical Therapy Visit Information Visit Information Visit Type Treatment Note Visit Note Visit [email or web address] Access Code: [email or web address] Visit Start Time 09:50 Visit Stop Time 10:32 Visit Number 6 Number of COUNTRY SINGER Visits 3 PT-OP-B Current Condition Start: 06/09/23 13:31 Freq: Status: Active Protocol: Document 06/22/23 09:03 [facility] (Rec: 06/22/23 10:23 [facility] [id number]) Current Condition History of Current Condition Onset Date 4-5 months Current Complaints R lat elbow pain History of Current Condition Pt reports gradual onset of R lat elbow pain that is worsening. She denies neck pain or R shoulder pain. She wants to pickle ball. 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 Her elbow wakes her in the night and straightening it out is painful. When walking the park without poles, then it starts aching and graually will bring it up into a sling position. no other treatment done. Xray done. 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 Does do strength training classes and it typically doesn't bother her and only a couple of moves that bother it. She only uses the 6lb bar. Pt has plates in wrist d/t ulna and radius fx about 20 years ago. Treatment Goals Patient/Caregiver Goals allievate the pain, be able to hike w/o pain, cook w/o pain, sleep w/o pain PT-OP-C Subjective Start: 06/09/23 13:31 Freq: Status: Active Protocol: Document 07/28/23 08:07 AB (Rec: 07/28/23 11:06 AB [id number]) OP-PT Subjective Patient Comments Patient Comments Patient reports she thinks the elbow is getting better. Patient rates right elbow pain 1/10 at rest, 3/10 with gripping ( turbine attendant hand start of session with reports of 3/10 pain ). Patient reports using hiking poles and sleeping increase pain, woke up with 7/ 10 pain right elbow 2 nights ago. Pt reports this happened once last week whereas was 2- 3X a night prior to start of physical therapy. Patient reports lifting a heavy pot or two pots requires 2 hands and is still painful. Pulling a gallon of milk out of fridge is painful. Patient comments the pain eases when the heavy object is put down, compared to prior to PT when the pain persisted for 5 to 10 minutes with self massage used to ease the pain. Patient reports the sensation of pain when lifting items is like hitting the funny bone. Patient Questionnaires Quick Dash- Upper Extremity Quick Dash UE Impairment 40 to 59% Impaired (Score 40- 59) PT-OP-F Manual Assessment Start: 06/09/23 13:31 Freq: Status: Active Protocol: Document 06/22/23 09:03 [facility] (Rec: 06/22/23 10:23 [facility] [id number]) Manual Assessments Soft Tissue Assessment Soft Tissue Mobility Assessment tenderness to lat epicondyle and extensor tendons &mm bellies; tenderness to triceps distally PT-OP-K Range of Motion Start: 06/09/23 13:31 Freq: Status: Active Protocol: Document 07/28/23 08:07 AB (Rec: 07/28/23 11:16 AB [id number]) Shoulder Goniometric Range of Motion Shoulder right Internal Rotation Behind Back (text) T6 with pain Wrist Goniometric Range of Motion Wrist Right Wrist Pronation (degrees) 88 PT-OP-L Special Tests Start: 06/09/23 13:31 Freq: Status: Active Protocol: Document 06/22/23 09:03 [facility] (Rec: 06/22/23 10:23 [facility] [id number]) Special Tests Elbow Special Tests 3rd digit ext Comments neg cozens Comments positive Medeiros Comments positve Neural Special Tests- Upper Body Median Nerve Tension Test Results R positive Radial Nerve Tension Comments neg R Ulnar Nerve Tension Comments neg R PT-OP-M Strength Start: 06/09/23 13:31 Freq: Status: Active Protocol: Document 07/28/23 08:07 AB (Rec: 07/28/23 11:16 AB [id number]) Hand Statement Processor/Pinch Strength Hand Strength Right Comments 20kg,26kg PT-OP-Q Treatments Start: 06/09/23 13:31 Freq: Status: Active Protocol: Document 07/28/23 08:07 AB (Rec: 07/28/23 11:06 AB [id number]) Therapeutic Exercises Standing Exercises wall push up plus Side bilateral Reps/Minutes X10 Comments verbal and visual cues Manual Therapy Treatment Soft Tissue Mobilization R elbow Body Location forearm extensors, CET & tricep tendon Mobilization Type Cross-Friction,Rolling, Sustained Pressure Intensity/Depth Moderate Joint Mobilizations Mulligan with movement Joint right elbow Grade III Body Position Hooklying Reps/Duration X10X3 Comments with gripping Manual Techniques ice massage lateral elbow Body Location right elbow/wrist extensors and second bout to distal triceps. Body Position Sitting Reps/Duration duration to numbness Comments skin WNL post PT-OP-R Modalities Start: 06/09/23 13:31 Freq: Status: Active Protocol: Document 07/13/23 12:49 AB (Rec: 07/13/23 16:23 AB [id number]) Infrared Treatment Treatment Laser Body Position Hooklying Program or Protocal tendon/pain/chronic Comments lat epicondyle, distal triceps and wrist ext tendons PT-OP-T Assessment and Plan Start: 06/09/23 13:31 Freq: Status: Active Protocol: Document 07/28/23 08:07 AB (Rec: 07/28/23 11:06 AB [id number]) Physical Therapy Assessment Goals ROM Heel Shaver Goal (LTG) pt will have full pronation and IR behind back to at least T5 w/o pain LTG Duration 09/07 strength Short Term Goal (STG) Pt will be indep w/HEP and improve teacher citizenship strength to at least 17kg STG Duration 08/02 Fdc Goal (LTG) Pt will score 5/5 on all UE MMT on RUE w/o inc pain to allow ease w/activity LTG Duration 09/13 activities Short Term Goal (STG) Pt will be able to walk w/o inc pain in elbow (w/o trekking poles) STG Duration 08/02 Heel Shaver Goal (LTG) Pt will be able to hike and do all cooking activities w/o inc pain greater than 2/10 LTG Duration 09/13 quick dash Impairment 31.8 Short Term Goal (STG) Pt will improve score of quick dash to no greater than 20 to show improved functional ability. STG Duration 07/30 Heel Shaver Goal (LTG) Pt will improve score of quick dash to no greater than 6 to show improved functional ability. LTG Duration 09/13 Assessment Summary Assessment Patient reports no pain with gripping end of session. Noted improved pronation and shoulder IR AROM this session compared to evaluation and significant increase in teacher citizenship strength. Waking up from sleep due to pain has decreased from multiple times a night to once a week per patient, but increased pain with lifting pans, and a gallon of milk persist. Physical Therapy Plan Frequency and Duration Frequency of Treatment 1-2x/wk Duration of treatment (weeks) 12 Plan of Care Start Date 06/22/23 Plan of Care End Date 09/14/23 Next Visit Focus/Plan Next Note Type Treatment Note Next Visit Plan continue manual to extensor tendons & triceps and wrist and elbow mobiltiy; circumfrential w/IR STM to medial anterior elbow, assess tolerance to triceps ext with band, possibly push up plus on wall to HEP
--- NOTE | 2023-08-08 18:43 | PT.OTN ---
Current Diagnoses Lateral epicondylitis, right elbow (08/08/23) Difficulty in walking, not elsewhere classified (08/08/23) Abnormal posture (08/08/23) Weakness (08/08/23) Physical Therapy Treatment Note PT-OP-A Visit Information Start: 06/09/23 13:31 Freq: Status: Active Protocol: Document 08/08/23 14:36 [facility] (Rec: 08/08/23 18:43 [facility] [id number]) Out-Patient Physical Therapy Visit Information Visit Information Visit Type Treatment Note Visit Note Visit [email or web address] Access Code: [email or web address] Visit Start Time 14:33 Visit Stop Time 15:15 Visit Number 7 Number of PHOTOENGRAVING RETOUCHER Visits 0 PT-OP-B Current Condition Start: 06/09/23 13:31 Freq: Status: Active Protocol: Document 06/22/23 09:03 [facility] (Rec: 06/22/23 10:23 [facility] [id number]) Current Condition History of Current Condition Onset Date 4-5 months Current Complaints R lat elbow pain History of Current Condition Pt reports gradual onset of R lat elbow pain that is worsening. She denies neck pain or R shoulder pain. She wants to pickle ball. 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 Her elbow wakes her in the night and straightening it out is painful. When walking the park without poles, then it starts aching and graually will bring it up into a sling position. no other treatment done. Xray done. 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 Does do strength training classes and it typically doesn't bother her and only a couple of moves that bother it. She only uses the 6lb bar. Pt has plates in wrist d/t ulna and radius fx about 20 years ago. Treatment Goals Patient/Caregiver Goals allievate the pain, be able to hike w/o pain, cook w/o pain, sleep w/o pain PT-OP-C Subjective Start: 06/09/23 13:31 Freq: Status: Active Protocol: Document 08/08/23 14:36 [facility] (Rec: 08/08/23 18:43 [facility] [id number]) OP-PT Subjective Patient Comments Patient Comments Elbow is just tender now. Last time she had relief w/tricep. She has hiked and used poles and it felt okay. Noticed it when she was extendedand grabbed gallon of milk, she noticed discomfot Patient Reported Progress Improving PT-OP-F Manual Assessment Start: 06/09/23 13:31 Freq: Status: Active Protocol: Document 06/22/23 09:03 [facility] (Rec: 06/22/23 10:23 [facility] [id number]) Manual Assessments Soft Tissue Assessment Soft Tissue Mobility Assessment tenderness to lat epicondyle and extensor tendons &mm bellies; tenderness to triceps distally PT-OP-K Range of Motion Start: 06/09/23 13:31 Freq: Status: Active Protocol: Document 07/28/23 08:07 AB (Rec: 07/28/23 11:16 AB [id number]) Shoulder Goniometric Range of Motion Shoulder right Internal Rotation Behind Back (text) T6 with pain Wrist Goniometric Range of Motion Wrist Right Wrist Pronation (degrees) 88 PT-OP-L Special Tests Start: 06/09/23 13:31 Freq: Status: Active Protocol: Document 06/22/23 09:03 [facility] (Rec: 06/22/23 10:23 [facility] [id number]) Special Tests Elbow Special Tests 3rd digit ext Comments neg cozens Comments positive Medeiros Comments positve Neural Special Tests- Upper Body Median Nerve Tension Test Results R positive Radial Nerve Tension Comments neg R Ulnar Nerve Tension Comments neg R PT-OP-M Strength Start: 06/09/23 13:31 Freq: Status: Active Protocol: Document 07/28/23 08:07 AB (Rec: 07/28/23 11:16 AB [id number]) Hand Coiled Coil Inspector/Pinch Strength Hand Strength Right Comments 20kg,26kg PT-OP-Q Treatments Start: 06/09/23 13:31 Freq: Status: Active Protocol: Document 08/08/23 14:36 [facility] (Rec: 08/08/23 18:43 [facility] [id number]) Therapeutic Exercises Sitting Exercises AROM wrist extension, radial dev Side right Resistance 3lb ea Reps/Minutes X10 each Standing Exercises pronation Side right Equipment Used orange band Reps/Minutes 12 Manual Therapy Treatment Soft Tissue Mobilization R elbow Body Location forearm extensors, CET & tricep tendon Mobilization Type Cross-Friction,Rolling, Sustained Pressure Intensity/Depth Moderate Joint Mobilizations Mulligan with movement Joint right elbow Grade III Body Position Hooklying Reps/Duration X10X3 Comments with gripping radioulnar Comments AP radius distal FM AP and PA proximal radius FM elbow mob Comments distraction and on axis ulna Taping 1 Type of Tape Kinesio Tape Comments Y strip from wrist to lat ep and y strip lat epicondyle & I strip post PT-OP-R Modalities Start: 06/09/23 13:31 Freq: Status: Active Protocol: Document 07/13/23 12:49 AB (Rec: 07/13/23 16:23 AB [id number]) Infrared Treatment Treatment Laser Body Position Hooklying Program or Protocal tendon/pain/chronic Comments lat epicondyle, distal triceps and wrist ext tendons PT-OP-T Assessment and Plan Start: 06/09/23 13:31 Freq: Status: Active Protocol: Document 08/08/23 14:36 [facility] (Rec: 08/08/23 18:43 [facility] [id number]) Physical Therapy Assessment Goals ROM Repair Servicer Goal (LTG) pt will have full pronation and IR behind back to at least T5 w/o pain LTG Duration 09/07 strength Short Term Goal (STG) Pt will be indep w/HEP and improve dynamicist strength to at least 17kg STG Duration 08/02 Jail Goal (LTG) Pt will score 5/5 on all UE MMT on RUE w/o inc pain to allow ease w/activity LTG Duration 09/13 activities Short Term Goal (STG) Pt will be able to walk w/o inc pain in elbow (w/o trekking poles) STG Duration 08/02 Jail Goal (LTG) Pt will be able to hike and do all cooking activities w/o inc pain greater than 2/10 LTG Duration 09/13 quick dash Impairment 31.8 Short Term Goal (STG) Pt will improve score of quick dash to no greater than 20 to show improved functional ability. STG Duration 07/30 Jail Goal (LTG) Pt will improve score of quick dash to no greater than 6 to show improved functional ability. LTG Duration 09/13 Assessment Summary Assessment pt was able to inc resistance w/o inc pain today for exercises and at start had pain lifting 10lb w/arm extended and dec pain at end of session w/same task Physical Therapy Plan Frequency and Duration Frequency of Treatment 1-2x/wk Duration of treatment (weeks) 12 Plan of Care Start Date 06/22/23 Plan of Care End Date 09/14/23 Next Visit Focus/Plan Next Note Type Treatment Note Next Visit Plan continue manual to extensor tendons & triceps and wrist and elbow mobiltiy; circumfrential w/IR STM to medial anterior elbow, assess tolerance to triceps ext with band, possibly push up plus on wall to HEP
--- NOTE | 2023-08-17 09:41 | PT.OTN ---
Current Diagnoses Lateral epicondylitis, right elbow (08/17/23) Difficulty in walking, not elsewhere classified (08/17/23) Abnormal posture (08/17/23) Weakness (08/17/23) Physical Therapy Treatment Note PT-OP-A Visit Information Start: 06/09/23 13:31 Freq: Status: Active Protocol: Document 08/17/23 08:21 [facility] (Rec: 08/17/23 09:41 [facility] [id number]) Out-Patient Physical Therapy Visit Information Visit Information Visit Type Treatment Note Visit Note Visit [email or web address] Access Code: [email or web address] Visit Start Time 08:22 Visit Stop Time 09:00 Visit Number 8 Number of WAFER FABRICATION OPERATOR Visits 0 PT-OP-B Current Condition Start: 06/09/23 13:31 Freq: Status: Active Protocol: Document 06/22/23 09:03 [facility] (Rec: 06/22/23 10:23 [facility] [id number]) Current Condition History of Current Condition Onset Date 4-5 months Current Complaints R lat elbow pain History of Current Condition Pt reports gradual onset of R lat elbow pain that is worsening. She denies neck pain or R shoulder pain. She wants to pickle ball. 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 Her elbow wakes her in the night and straightening it out is painful. When walking the park without poles, then it starts aching and graually will bring it up into a sling position. no other treatment done. Xray done. 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 Does do strength training classes and it typically doesn't bother her and only a couple of moves that bother it. She only uses the 6lb bar. Pt has plates in wrist d/t ulna and radius fx about 20 years ago. Treatment Goals Patient/Caregiver Goals allievate the pain, be able to hike w/o pain, cook w/o pain, sleep w/o pain PT-OP-C Subjective Start: 06/09/23 13:31 Freq: Status: Active Protocol: Document 08/17/23 08:21 [facility] (Rec: 08/17/23 09:41 [facility] [id number]) OP-PT Subjective Patient Comments Patient Comments Some days her elbow is more tender and other days it is better. YEsterday, she did tens and ice, exercises, massage and massage gun and took a hot shower and didn't feel it at all for the rest of the day. More has been along tricep. Pt at least 85% better than when started PT-OP-F Manual Assessment Start: 06/09/23 13:31 Freq: Status: Active Protocol: Document 06/22/23 09:03 [facility] (Rec: 06/22/23 10:23 [facility] [id number]) Manual Assessments Soft Tissue Assessment Soft Tissue Mobility Assessment tenderness to lat epicondyle and extensor tendons &mm bellies; tenderness to triceps distally PT-OP-K Range of Motion Start: 06/09/23 13:31 Freq: Status: Active Protocol: Document 07/28/23 08:07 [facility] (Rec: 07/28/23 11:16 [facility] [id number]) Shoulder Goniometric Range of Motion Shoulder right Internal Rotation Behind Back (text) T6 with pain Wrist Goniometric Range of Motion Wrist Right Wrist Pronation (degrees) 88 PT-OP-L Special Tests Start: 06/09/23 13:31 Freq: Status: Active Protocol: Document 06/22/23 09:03 [facility] (Rec: 06/22/23 10:23 [facility] [id number]) Special Tests Elbow Special Tests 3rd digit ext Comments neg cozens Comments positive Medeiros Comments positve Neural Special Tests- Upper Body Median Nerve Tension Test Results R positive Radial Nerve Tension Comments neg R Ulnar Nerve Tension Comments neg R PT-OP-M Strength Start: 06/09/23 13:31 Freq: Status: Active Protocol: Document 07/28/23 08:07 [facility] (Rec: 07/28/23 11:16 [facility] [id number]) Hand Cleaning Manager/Pinch Strength Hand Strength Right Comments 20kg,26kg PT-OP-Q Treatments Start: 06/09/23 13:31 Freq: Status: Active Protocol: Document 08/17/23 08:21 [facility] (Rec: 08/17/23 09:41 [facility] [id number]) Therapeutic Exercises Supine Exercises facilitation Supine Exercise Name at C3-4 supine prolonged holds Side bilateral Reps/Minutes 3 min foam roll Supine Exercise Name flex, Habd, abd Side bilateral Reps/Minutes 6 ea tricep ext Supine Exercise Name skull cert pharmacy tech Side right Equipment Used 5# Reps/Minutes 10 Sitting Exercises axial elongation Sitting Exercise Name 1. self resistance around C3 2 . tband lvl2 Side bilateral Reps/Minutes 1. 30 sec 2. 10 R forearm, CET stretch Sitting Exercise Name 1. flexor tendons 2. ext tendons Side right Reps/Minutes 30 sec eax2 Standing Exercises wall push up plus Standing Exercise Name on counter push up plus - elbows in Side bilateral Reps/Minutes 10 ea ext Standing Exercise Name bent over tricep ext Side right Equipment Used 5# Reps/Minutes 10 Manual Therapy Treatment Soft Tissue Mobilization R elbow Body Location triceps and triceps tendon Mobilization Type Cross-Friction,Rolling, Sustained Pressure Intensity/Depth Moderate Joint Mobilizations radioulnar Comments PA radius distal FM PA proximal radius FM Self-Care/Home Management Treatment Education Other Education 3 min: edu for support neck and R shoulder w/s/l sleep PT-OP-R Modalities Start: 06/09/23 13:31 Freq: Status: Active Protocol: Document 07/13/23 12:49 [facility] (Rec: 07/13/23 16:23 [id number]) Infrared Treatment Treatment Laser Body Position Hooklying Program or Protocal tendon/pain/chronic Comments lat epicondyle, distal triceps and wrist ext tendons PT-OP-T Assessment and Plan Start: 06/09/23 13:31 Freq: Status: Active Protocol: Document 08/17/23 08:21 [facility] (Rec: 08/17/23 09:41 [facility] [id number]) Physical Therapy Assessment Goals ROM Server Programmer Goal (LTG) pt will have full pronation and IR behind back to at least T5 w/o pain LTG Duration 09/07 strength Short Term Goal (STG) Pt will be indep w/HEP and improve mold maintenance technician strength to at least 17kg STG Duration 08/02 Server Programmer Goal (LTG) Pt will score 5/5 on all UE MMT on RUE w/o inc pain to allow ease w/activity LTG Duration 09/13 activities Short Term Goal (STG) Pt will be able to walk w/o inc pain in elbow (w/o trekking poles) STG Duration 08/02 Server Programmer Goal (LTG) Pt will be able to hike and do all cooking activities w/o inc pain greater than 2/10 LTG Duration 09/13 quick dash Impairment 31.8 Short Term Goal (STG) Pt will improve score of quick dash to no greater than 20 to show improved functional ability. STG Duration 07/30 Server Programmer Goal (LTG) Pt will improve score of quick dash to no greater than 6 to show improved functional ability. LTG Duration 09/13 Assessment Summary Assessment Pt had dec pain and improved strength w/pronation and wrist ext w/axial elongation facilaition. she has fwd shoulder positioning and with edu, pt able to improve position and no inc painw/ exercises. Physical Therapy Plan Frequency and Duration Frequency of Treatment 1-2x/wk Duration of treatment (weeks) 12 Plan of Care Start Date 06/22/23 Plan of Care End Date 09/14/23 Next Visit Focus/Plan Next Note Type Treatment Note Next Visit Plan continue manual to extensor tendons & triceps and wrist and elbow mobiltiy; circumfrential w/IR STM to medial anterior elbow, advance elbow/scap stability and cervical stability
--- NOTE | 2023-09-01 10:49 | PT.OTN ---
Current Diagnoses Lateral epicondylitis, right elbow (09/01/23) Difficulty in walking, not elsewhere classified (09/01/23) Abnormal posture (09/01/23) Weakness (09/01/23) Physical Therapy Treatment Note PT-OP-A Visit Information Start: 06/09/23 13:31 Freq: Status: Active Protocol: Document 09/01/23 09:52 [facility] (Rec: 09/01/23 10:49 [facility] [id number]) Out-Patient Physical Therapy Visit Information Visit Information Visit Type Discharge Summary Visit Start Time 09:52 Visit Stop Time 10:30 Visit Number 9 Number of MINERAL WOOL INSULATION SUPERVISOR Visits 0 PT-OP-B Current Condition Start: 06/09/23 13:31 Freq: Status: Active Protocol: Document 06/22/23 09:03 [facility] (Rec: 06/22/23 10:23 [facility] [id number]) Current Condition History of Current Condition Onset Date 4-5 months Current Complaints R lat elbow pain History of Current Condition Pt reports gradual onset of R lat elbow pain that is worsening. She denies neck pain or R shoulder pain. She wants to pickle ball. 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 Her elbow wakes her in the night and straightening it out is painful. When walking the park without poles, then it starts aching and graually will bring it up into a sling position. no other treatment done. Xray done. 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 Does do strength training classes and it typically doesn't bother her and only a couple of moves that bother it. She only uses the 6lb bar. Pt has plates in wrist d/t ulna and radius fx about 20 years ago. Treatment Goals Patient/Caregiver Goals allievate the pain, be able to hike w/o pain, cook w/o pain, sleep w/o pain PT-OP-C Subjective Start: 06/09/23 13:31 Freq: Status: Active Protocol: Document 09/01/23 09:52 [facility] (Rec: 09/01/23 10:49 [facility] [id number]) OP-PT Subjective Patient Comments Patient Comments pt feels ready for DC and hasn 't had much pain and the day she did, she did her exercises and it was better PT-OP-F Manual Assessment Start: 06/09/23 13:31 Freq: Status: Active Protocol: Document 06/22/23 09:03 [facility] (Rec: 06/22/23 10:23 [facility] [id number]) Manual Assessments Soft Tissue Assessment Soft Tissue Mobility Assessment tenderness to lat epicondyle and extensor tendons &mm bellies; tenderness to triceps distally PT-OP-K Range of Motion Start: 06/09/23 13:31 Freq: Status: Active Protocol: Document 07/28/23 08:07 [facility] (Rec: 07/28/23 11:16 AB [id number]) Shoulder Goniometric Range of Motion Shoulder right Internal Rotation Behind Back (text) T6 with pain Wrist Goniometric Range of Motion Wrist Right Wrist Pronation (degrees) 88 PT-OP-L Special Tests Start: 06/09/23 13:31 Freq: Status: Active Protocol: Document 06/22/23 09:03 [facility] (Rec: 06/22/23 10:23 [facility] [id number]) Special Tests Elbow Special Tests 3rd digit ext Comments neg cozens Comments positive Medeiros Comments positve Neural Special Tests- Upper Body Median Nerve Tension Test Results R positive Radial Nerve Tension Comments neg R Ulnar Nerve Tension Comments neg R PT-OP-M Strength Start: 06/09/23 13:31 Freq: Status: Active Protocol: Document 09/01/23 09:52 [facility] (Rec: 09/01/23 10:49 [facility] [id number]) Shoulder Strength Shoulder Manual Muscle Testing Right Flexion 5 Normal Extension 5 Normal Abduction (C5) 5 Normal External Rotation 5 Normal Internal Rotation 5 Normal Elbow/Forearm Strength Elbow and Forearm Manual Muscle Testing Right Flexion (C6) 5 Normal Extension (C7) 5 Normal Pronation 5 Normal Supination 5 Normal Left Flexion (C6) 5 Normal Extension (C7) 5 Normal Pronation 5 Normal Supination 5 Normal Wrist Strength Wrist Manual Muscle Testing Right Flexion (C7) 5 Normal Extension (C6) 5 Normal Ulnar Deviation 5 Normal Radial Deviation 5 Normal Left Flexion (C7) 5 Normal Extension (C6) 5 Normal Ulnar Deviation 5 Normal Radial Deviation 5 Normal Hand Livery Car Driver/Pinch Strength Hand Strength Right Comments 25kg average PT-OP-Q Treatments Start: 06/09/23 13:31 Freq: Status: Active Protocol: Document 09/01/23 09:52 [facility] (Rec: 09/01/23 10:49 [facility] [id number]) Therapeutic Exercises Supine Exercises ext Supine Exercise Name tspine over foam roll Reps/Minutes 2 min foam roll Supine Exercise Name flex, Habd, abd Side bilateral Reps/Minutes 8 ea tricep ext Supine Exercise Name skull general milling superintendent Side right Equipment Used 5# Reps/Minutes 10 Sidelying Exercises open Sidelying Exercise Name open book Side bilateral Reps/Minutes 8 ea Sitting Exercises AROM wrist extension, radial dev Side right Resistance 3lb ea Reps/Minutes X8 each R forearm, CET stretch Sitting Exercise Name 1. flexor tendons 2. ext tendons Side right Reps/Minutes 30 sec ea Standing Exercises self release Standing Exercise Name tennis ball wall push up plus Standing Exercise Name on counter push up plus - elbows in Side bilateral Reps/Minutes 4 ea triceps stretch Standing Exercise Name quick review ext Standing Exercise Name bent over tricep ext Side right Equipment Used 5# Reps/Minutes 10 Other Exercises isometrics Other Exercise Name tennis ball to periscap Side right Manual Therapy Treatment Soft Tissue Mobilization RUE Body Location R UT, LS, rhomboids Mobilization Type Rolling Intensity/Depth Moderate Comments w/gentle med n glide lateral forearm and triceps Body Location R triceps Mobilization Type Rolling Intensity/Depth Moderate Body Position Sitting PT-OP-R Modalities Start: 06/09/23 13:31 Freq: Status: Active Protocol: Document 07/13/23 12:49 [facility] (Rec: 07/13/23 16:23 [facility] [id number]) Infrared Treatment Treatment Laser Body Position Hooklying Program or Protocal tendon/pain/chronic Comments lat epicondyle, distal triceps and wrist ext tendons PT-OP-T Assessment and Plan Start: 06/09/23 13:31 Freq: Status: Active Protocol: Document 09/01/23 09:52 [facility] (Rec: 09/01/23 10:49 [facility] [id number]) Physical Therapy Assessment Goals ROM Curriculum Coordinator Goal (LTG) pt will have full pronation and IR behind back to at least T5 w/o pain LTG Duration achieved 08/31 strength Short Term Goal (STG) Pt will be indep w/HEP and improve dry cell tester strength to at least 17kg STG Duration achieved to 25 kg Retirement Goal (LTG) Pt will score 5/5 on all UE MMT on RUE w/o inc pain to allow ease w/activity LTG Duration achieved 08/31 activities Short Term Goal (STG) Pt will be able to walk w/o inc pain in elbow (w/o trekking poles) STG Duration acheived 08/31 Retirement Goal (LTG) Pt will be able to hike and do all cooking activities w/o inc pain greater than 2/10 LTG Duration achieved 08/31 quick dash Impairment 31.8 Short Term Goal (STG) Pt will improve score of quick dash to no greater than 20 to show improved functional ability. STG Duration achieved Retirement Goal (LTG) Pt will improve score of quick dash to no greater than 6 to show improved functional ability. LTG Duration achieved 08/31 Assessment Summary Assessment pt has made excellent progress w/PT at this time and is advancing her strength and ROM w/o any pain at this time.S he is able to do typical activities w/o inc pain and has one instance recently of pain and exercises were able to relieve. DC d/t meeting goals to indep [facility] Physical Therapy Plan Discharge Physical Therapy Discharge Reasons Goals Met
--- NOTE | 2023-09-01 10:49 | PT.OPDS ---
Current Diagnoses Lateral epicondylitis, right elbow (09/01/23) Difficulty in walking, not elsewhere classified (09/01/23) Abnormal posture (09/01/23) Weakness (09/01/23) Visit Care Team Role Provider Type Ynes Wild PA-C Family Provider Advanced Lumber Sorter Primary Care Provider Specialty: Medical Address: [address] [place] [address], [id number] Email: Oscar Engle MD Attending Provider Physician Referring Provider Specialty: Orthopedics Orthopedic Surgery Address: [address] [place] [address], [id number] Email: [email or web address] Visit Number Visit Number 9 Discharge Summary PT-OP-B Current Condition Start: 06/09/23 13:31 Freq: Status: Active Protocol: Document 06/22/23 09:03 [facility] (Rec: 06/22/23 10:23 [facility] [id number]) Current Condition History of Current Condition Onset Date 4-5 months Current Complaints R lat elbow pain History of Current Condition Pt reports gradual onset of R lat elbow pain that is worsening. She denies neck pain or R shoulder pain. She wants to pickle ball. 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 Her elbow wakes her in the night and straightening it out is painful. When walking the park without poles, then it starts aching and graually will bring it up into a sling position. no other treatment done. Xray done. 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 Does do strength training classes and it typically doesn't bother her and only a couple of moves that bother it. She only uses the 6lb bar. Pt has plates in wrist d/t ulna and radius fx about 20 years ago. Treatment Goals Patient/Caregiver Goals allievate the pain, be able to hike w/o pain, cook w/o pain, sleep w/o pain PT-OP-C Subjective Start: 06/09/23 13:31 Freq: Status: Active Protocol: Document 09/01/23 09:52 [facility] (Rec: 09/01/23 10:49 [facility] [id number]) OP-PT Subjective Patient Comments Patient Comments pt feels ready for DC and hasn 't had much pain and the day she did, she did her exercises and it was better PT-OP-F Manual Assessment Start: 06/09/23 13:31 Freq: Status: Active Protocol: Document 06/22/23 09:03 [facility] (Rec: 06/22/23 10:23 [facility] [id number]) Manual Assessments Soft Tissue Assessment Soft Tissue Mobility Assessment tenderness to lat epicondyle and extensor tendons &mm bellies; tenderness to triceps distally PT-OP-K Range of Motion Start: 06/09/23 13:31 Freq: Status: Active Protocol: Document 07/28/23 08:07 [facility] (Rec: 07/28/23 11:16 [facility] [id number]) Shoulder Goniometric Range of Motion Shoulder right Internal Rotation Behind Back (text) T6 with pain Wrist Goniometric Range of Motion Wrist Right Wrist Pronation (degrees) 88 PT-OP-L Special Tests Start: 06/09/23 13:31 Freq: Status: Active Protocol: Document 06/22/23 09:03 [facility] (Rec: 06/22/23 10:23 [facility] [id number]) Special Tests Elbow Special Tests 3rd digit ext Comments neg cozens Comments positive Medeiros Comments positve Neural Special Tests- Upper Body Median Nerve Tension Test Results R positive Radial Nerve Tension Comments neg R Ulnar Nerve Tension Comments neg R PT-OP-M Strength Start: 06/09/23 13:31 Freq: Status: Active Protocol: Document 09/01/23 09:52 [facility] (Rec: 09/01/23 10:49 [facility] [id number]) Shoulder Strength Shoulder Manual Muscle Testing Right Flexion 5 Normal Extension 5 Normal Abduction (C5) 5 Normal External Rotation 5 Normal Internal Rotation 5 Normal Elbow/Forearm Strength Elbow and Forearm Manual Muscle Testing Right Flexion (C6) 5 Normal Extension (C7) 5 Normal Pronation 5 Normal Supination 5 Normal Left Flexion (C6) 5 Normal Extension (C7) 5 Normal Pronation 5 Normal Supination 5 Normal Wrist Strength Wrist Manual Muscle Testing Right Flexion (C7) 5 Normal Extension (C6) 5 Normal Ulnar Deviation 5 Normal Radial Deviation 5 Normal Left Flexion (C7) 5 Normal Extension (C6) 5 Normal Ulnar Deviation 5 Normal Radial Deviation 5 Normal Hand Reference Services Head/Pinch Strength Hand Strength Right Comments 25kg average PT-OP-T Assessment and Plan Start: 06/09/23 13:31 Freq: Status: Active Protocol: Document 09/01/23 09:52 [facility] (Rec: 09/01/23 10:49 [facility] [id number]) Physical Therapy Assessment Goals ROM Mcc Goal (LTG) pt will have full pronation and IR behind back to at least T5 w/o pain LTG Duration achieved 08/31 strength Short Term Goal (STG) Pt will be indep w/HEP and improve applied anthropologist strength to at least 17kg STG Duration achieved to 25 kg Mcc Goal (LTG) Pt will score 5/5 on all UE MMT on RUE w/o inc pain to allow ease w/activity LTG Duration achieved 08/31 activities Short Term Goal (STG) Pt will be able to walk w/o inc pain in elbow (w/o trekking poles) STG Duration acheived 08/31 Mcc Goal (LTG) Pt will be able to hike and do all cooking activities w/o inc pain greater than 2/10 LTG Duration achieved 08/31 quick dash Impairment 31.8 Short Term Goal (STG) Pt will improve score of quick dash to no greater than 20 to show improved functional ability. STG Duration achieved Certified Peer Specialist Goal (LTG) Pt will improve score of quick dash to no greater than 6 to show improved functional ability. LTG Duration achieved 08/31 Assessment Summary Assessment pt has made excellent progress w/PT at this time and is advancing her strength and ROM w/o any pain at this time.S he is able to do typical activities w/o inc pain and has one instance recently of pain and exercises were able to relieve. DC d/t meeting goals to indep HEP Physical Therapy Plan Discharge Physical Therapy Discharge Reasons Goals Met
== END 2023-09-21 10:18 ==
LOC: PHYS 09:45
PROVIDERS: Family Provider Physician Assistant; PCP Physician Assistant; Referring Provider Orthopaedic Surgery; Visit Provider Orthopaedic Surgery
DX: M77.11 Lateral epicondylitis, right elbow (principal); R29.3 Abnormal posture; R53.1 Weakness; R26.2 Difficulty in walking, not elsewhere classified
CPT/HCPCS: 97110; 97140; 97162; 97535

== ENCOUNTER → 2023-09-27 09:15 | Outpatient (CLI) | payer OTHER, SELFPAY ==
[2023-09-27 10:34] LABS: Add Manual Diff / Slide Review NO; Basophils Absolute Auto 0 /uL (0-100); Basophils Percent Auto 0.7 % (0-2); Eosinophils Absolute Auto 100 /uL (0-450); Eosinophils Percent Auto 2.7 % (2-4); Hematocrit 33.7 % (36-46); Hemoglobin 11.6 g/dL (12.0-16.0); Lymphocytes Absolute Auto 1000 /uL (1100-4500); Lymphocytes Percent Auto 26.9 % (25-40); Mean Corpuscular HGB Conc 34.4 % (30-36); Mean Corpuscular Hemoglobin 29.7 PG (26-34); Mean Corpuscular Volume 86.4 fL (80-100); Monocytes Absolute Auto 300 /uL (0-900); Monocytes Percent Auto 8.5 % (3-14); Neutrophils Absolute Auto 2200 /uL (1500-7000); Neutrophils Percent Auto 61.2 % (50-75); Platelet Count 189 X10^3/uL (150-400); Red Cell Distribution Width 13.9 % (11.6-14.8); White Blood Cell Count 3.6 X10^3/uL (4.5-11.0)
[2023-09-27 10:47] LABS: Alanine Aminotransferase 30 IU/L (<35); Albumin 4.4 g/dL (3.5-5.0); Albumin Globulin Ratio 1.6 (1.0-2.8); Alkaline Phosphatase 66 U/L (38-126); Aspartate Aminotransferase 41 IU/L (14-36); BUN Creatinine Ratio 16.9 (6-22); Bilirubin Total 0.5 mg/dL (0.2-1.3); Blood Urea Nitrogen 13 mg/dL (7-17); Calcium 9.1 mg/dL (8.4-10.2); Carbon Dioxide 26 mmol/L (22-32); Chloride 109 mmol/L (98-107); Cholesterol 183 mg/dL (140-199); Estimated Glomerular Filt Rate > 60 mL/min (>60); Globulin 2.7 g/dL (1.7-4.1); Glucose 97 mg/dL (80-110); HDL Cholesterol 94 mg/dL (40-60); HEMOLYSIS < 15 (0-50); LDL Cholesterol Calculated 75 mg/dL (<100); Potassium 4.6 mmol/L (3.4-5.1); Sodium 140 mmol/L (137-145); Total Protein 7.1 g/dL (6.3-8.2); Triglycerides 70 mg/dL (35-150)
[2023-09-27 10:48] LABS: Hemoglobin A1C% w Est Avg Glu 5.1 % (4.0-6.0)
== END ==
PROVIDERS: Family Provider Physician Assistant; PCP Family Medicine; Referring Provider Family Medicine; Visit Provider Family Medicine
DX: Z86.32 Personal history of gestational diabetes (principal); E78.5 Hyperlipidemia, unspecified; K58.9 Irritable bowel syndrome, unspecified; M35.00 Sjogren syndrome, unspecified
CPT/HCPCS: 36415; 80053; 80061; 83036; 85025

== ENCOUNTER → 2023-10-06 07:02 | Outpatient (CLI) | payer OTHER, SELFPAY ==
[2023-10-06 08:32] LABS: Add Manual Diff / Slide Review NO; Basophils Absolute Auto 0 /uL (0-100); Basophils Percent Auto 0.8 % (0-2); Eosinophils Absolute Auto 100 /uL (0-450); Hematocrit 32.6 % (36-46); Hemoglobin 11.1 g/dL (12.0-16.0); Lymphocytes Absolute Auto 1200 /uL (1100-4500); Lymphocytes Percent Auto 36.8 % (25-40); Mean Corpuscular HGB Conc 34.1 % (30-36); Mean Corpuscular Hemoglobin 29.7 PG (26-34); Mean Corpuscular Volume 87.2 fL (80-100); Monocytes Absolute Auto 400 /uL (0-900); Monocytes Percent Auto 11.8 % (3-14); Neutrophils Absolute Auto 1600 /uL (1500-7000); Neutrophils Percent Auto 46.6 % (50-75); Platelet Count 189 X10^3/uL (150-400); Red Blood Cell Count 3.74 X10^6/uL (4.0-5.2); Red Cell Distribution Width 13.8 % (11.6-14.8); White Blood Cell Count 3.3 X10^3/uL (4.5-11.0)
[2023-10-06 08:52] LABS: Alanine Aminotransferase 37 IU/L (<35); Albumin 4.1 g/dL (3.5-5.0); Albumin Globulin Ratio 1.6 (1.0-2.8); Alkaline Phosphatase 66 U/L (38-126); Aspartate Aminotransferase 39 IU/L (14-36); BUN Creatinine Ratio 15.6 (6-22); Bilirubin Total 0.5 mg/dL (0.2-1.3); Blood Urea Nitrogen 12 mg/dL (7-17); Calcium 9.1 mg/dL (8.4-10.2); Carbon Dioxide 24 mmol/L (22-32); Chloride 112 mmol/L (98-107); Estimated Glomerular Filt Rate > 60 mL/min (>60); Globulin 2.5 g/dL (1.7-4.1); Glucose 92 mg/dL (80-110); HEMOLYSIS < 15 (0-50); Potassium 4.5 mmol/L (3.4-5.1); Sodium 142 mmol/L (137-145); Total Protein 6.6 g/dL (6.3-8.2)
[2023-10-06 08:55] LABS: HEMOLYSIS < 15 (0-50); Iron 67 ug/dL (37-170)
[2023-10-06 09:17] LABS: Percent Iron Saturation 17 % (15-50); Total Iron Binding Capacity 383 ug/dL (265-497); Transferrin 302 mg/dL (206-381)
[2023-10-06 09:26] LABS: Ferritin 7 ng/mL (11-264)
[2023-10-06 09:58] LABS: Folate 13.2 ng/mL (2.76-20.0); Vitamin B12 293 pg/mL (239-931)
== END ==
PROVIDERS: Family Provider Physician Assistant; PCP Family Medicine; Referring Provider Family Medicine; Visit Provider Family Medicine
DX: D72.819 Decreased white blood cell count, unspecified (principal); D64.9 Anemia, unspecified
CPT/HCPCS: 36415; 80053; 82607; 82728; 82746; 83540; 83550; 85025

== ENCOUNTER → 2024-01-13 08:41 | Outpatient (CLI) | payer OTHER, SELFPAY ==
[2024-01-13 09:41] LABS: Add Manual Diff / Slide Review NO; Basophils Absolute Auto 0 /uL (0-100); Basophils Percent Auto 0.9 % (0-2); Eosinophils Absolute Auto 100 /uL (0-450); Eosinophils Percent Auto 2.4 % (2-4); Hematocrit 34.4 % (36-46); Hemoglobin 11.5 g/dL (12.0-16.0); Lymphocytes Absolute Auto 900 /uL (1100-4500); Lymphocytes Percent Auto 26.5 % (25-40); Mean Corpuscular HGB Conc 33.5 % (30-36); Mean Corpuscular Volume 86.3 fL (80-100); Monocytes Absolute Auto 300 /uL (0-900); Monocytes Percent Auto 9.4 % (3-14); Neutrophils Absolute Auto 2200 /uL (1500-7000); Neutrophils Percent Auto 60.8 % (50-75); Platelet Count 183 X10^3/uL (150-400); Red Blood Cell Count 3.99 X10^6/uL (4.0-5.2); Red Cell Distribution Width 13.8 % (11.6-14.8); White Blood Cell Count 3.6 X10^3/uL (4.5-11.0)
[2024-01-13 10:00] LABS: Alanine Aminotransferase 30 IU/L (<35); Albumin 4.5 g/dL (3.5-5.0); Alkaline Phosphatase 73 U/L (38-126); BUN Creatinine Ratio 11.5 (6-22); Bilirubin Total 0.6 mg/dL (0.2-1.3); Blood Urea Nitrogen 9 mg/dL (7-17); Calcium 9.9 mg/dL (8.4-10.2); Carbon Dioxide 25 mmol/L (22-32); Chloride 106 mmol/L (98-107); Estimated Glomerular Filt Rate > 60 mL/min (>60); Glucose 100 mg/dL (80-110); HEMOLYSIS < 15 (0-50); Potassium 4.7 mmol/L (3.4-5.1); Sodium 137 mmol/L (137-145)
[2024-01-13 10:02] LABS: Albumin Globulin Ratio 1.9 (1.0-2.8); Aspartate Aminotransferase 34 IU/L (14-36); Globulin 2.4 g/dL (1.7-4.1); Total Protein 6.9 g/dL (6.3-8.2)
== END ==
PROVIDERS: Family Provider Physician Assistant; PCP Family Medicine; Referring Provider Family Medicine; Visit Provider Family Medicine
DX: K58.0 Irritable bowel syndrome with diarrhea (principal); Z79.899 Other long term (current) drug therapy; R79.89 Other specified abnormal findings of blood chemistry; T78.40XA Allergy, unspecified, initial encounter; M35.00 Sjogren syndrome, unspecified; E78.5 Hyperlipidemia, unspecified; K21.9 Gastro-esophageal reflux disease without esophagitis
CPT/HCPCS: 36415; 80053; 85025

== ENCOUNTER → 2024-01-31 07:36 | Outpatient (CLI) | payer OTHER, SELFPAY ==
[2024-02-03 02:10] LABS: Lipoprotein (a) 27.4 nmol/L (<75.0)
== END ==
PROVIDERS: Family Provider Physician Assistant; PCP Family Medicine; Referring Provider Internal Medicine; Visit Provider Internal Medicine
DX: Z13.6 Encounter for screening for cardiovascular disorders (principal); Z82.49 Family history of ischemic heart disease and other diseases of the circulatory system
CPT/HCPCS: 83695

== ENCOUNTER → 2024-02-20 07:58 | Outpatient (CLI) | payer OTHER, SELFPAY ==
--- NOTE | 2024-02-20 07:59 | DI.MG.S_ITS ---
BILATERAL DIGITAL SCREENING MAMMOGRAM 3D/2D WITH CAD: 02/20/2024 CLINICAL: Routine screening. Family history of breast cancer. Comparison is made to exam dated: 02/15/2023 mammogram - outside location. The breasts are heterogeneously dense, which may obscure small masses (category c / 51-75% glandular tissue). Current study was also evaluated with a Computer Aided Detection (CAD) system. No significant masses, calcifications, or other findings are seen in either breast. There has been no significant interval change. IMPRESSION: NEGATIVE There is no mammographic evidence of malignancy. A 1 year screening mammogram is recommended. Based on the Tyrer Cuzick model (a risk assessment model) the patient's lifetime risk is 17.7% and her 10 year risk is 8.5%. According to the ACR, ACS, and NCCN guidelines, an annual breast MRI exam along with mammogram is recommended if the patient's lifetime risk is 20% or greater. This exam was interpreted at Station ID: [id number]. NOTE: For mammograms, a report in lay terms will be sent to the patient. Approximately 15% of breast malignancies will not be visualized mammographically. In the management of a palpable breast mass, a negative mammogram must not discourage biopsy of a clinically suspicious lesion. Electronically Signed By: So Vyas M.D., Ph.D. greer/william:02/22/2024 12:45:46 letter sent: Normal Exam ACR BI-RADS Category 1: Negative
== END ==
PROVIDERS: Family Provider Physician Assistant; PCP Family Medicine; Referring Provider Family Medicine; Visit Provider Family Medicine
DX: Z12.31 Encounter for screening mammogram for malignant neoplasm of breast (principal); Z80.3 Family history of malignant neoplasm of breast; R92.333 Mammographic heterogeneous density, bilateral breasts
CPT/HCPCS: 77063; 77067

== ENCOUNTER 2024-03-06 15:15 | Outpatient (RCR) | payer OTHER, SELFPAY ==
--- NOTE | 2024-02-09 16:42 | PT.OIE ---
Current Diagnoses Urge incontinence (02/09/24) Pelvic muscle wasting (02/09/24) Past Medical History (Last Updated 10/11/23 @ 19:23 by Shaylee Patterson) Allergies Chicken pox (~1976) Eczema (~2015) GERD (gastroesophageal reflux disease) (~2009) History of gestational diabetes (~1995) HLD (hyperlipidemia) IBS (irritable bowel syndrome) (~1989) Osteopenia (~2009) Ovarian cyst (~1975) Sjogren syndrome (~2015) Sleep disorder Tinnitus Urge incontinence (~2008) Past Surgical History (Last Updated 10/11/23 @ 19:23 by Shaylee Patterson) Anesthesia History of appendectomy (~1975) History of delivery (~1995) History of knee surgery (~2008) History of surgery on wrist (~2004) History of tonsillectomy (~1975) History of urologic surgery (~2008) Visit Care Team Role Provider Type Ynes Wild PA-C Family Provider Advanced Tractor Expert Specialty: Medical Address: [address] [place] [address], [id number] Email: Mony Walton MD Attending Provider Physician Primary Care Provider Referring Provider Specialty: Family Practice INTEGRITY SPECIALIST Address: [address] [place] [address], [id number] Email: [email or web address] Physical Therapy Initial Evaluation PT-OP-A Visit Information Start: 02/09/24 12:48 Freq: Status: Active Protocol: Document 02/09/24 13:47 [facility] (Rec: 02/09/24 14:22 [facility] [id number]) Out-Patient Physical Therapy Visit Information Visit Information Visit Type Initial Evaluation Visit Start Time 13:45 Visit Stop Time 14:30 Visit Number 1 Evaluation Information Evaluation Date 02/09/24 PT-OP-B Current Condition Start: 02/09/24 12:48 Freq: Status: Active Protocol: Document 02/09/24 13:47 [facility] (Rec: 02/09/24 14:22 [facility] [id number]) Current Condition History of Current Condition History of Current Condition symptoms started about 7 months ago and she is on medication so it has gotten better, prior to the medication she was getting sudden urges that she wouldn' have time to get to the bathroonm. SHe is wearing pantiliners just in case and times like walking [facility] if she feels she needs to go she isn 't able to make it to the bathroom. Prior Treatments and Tests history of USI with urethral lift in 2008 PT-OP-C Subjective Start: 02/09/24 12:48 Freq: Status: Active Protocol: Document 02/09/24 13:45 [facility] (Rec: 02/09/24 16:41 [facility] [id number]) Patient Questionnaires Pelvic Pain and Urgency/Frequency Patient Symptom Scale Pelvic Pain Score 8 PT-OP-I Pelvic Floor Start: 02/09/24 12:48 Freq: Status: Active Protocol: Document 02/09/24 16:26 [facility] (Rec: 02/09/24 16:29 [facility] [id number]) Pelvic Floor Assessment Urine Pelvic Floor Surgery Yes: urethral sling Urinary Symptoms Urge Sensation Other Urinary Symptoms pt reports a strong urge sensation especially with grocery shoppign or walking around the loop at [facility]. As soon as she sees the restroom she has difficulty making to to the bathroom without leakage Leakage Size Small Leakage Cause Urge Other Leakage Causes walking to the toilet Leaks Per Day 5 ( is better now with the medication) Nocturia 0-1 Urine Pad Type Panty Liner Pelvic Clock Pelvic Clock 3-6 Tightness Contraction Ability Manual Muscle Testing Left 3 Manual Muscle Testing Right 3 Manual Muscle Testing Anterior 2 Manual Muscle Testing Posterior 3 Muscle Endurance (Seconds) 5 Comments Pelvic Floor Comments Decreased endurance contractions of the pelvic floor PT-OP-Q Treatments Start: 02/09/24 12:48 Freq: Status: Active Protocol: Document 02/09/24 13:45 [facility] (Rec: 02/09/24 14:41 [facility] [id number]) Therapeutic Exercises Supine Exercises pelvic floor long holds with adductor assist Reps/Minutes hold 5-10 seconds and rest 10 seconds x 10 Self-Care/Home Management Treatment Education Patient Education Home Exercise Program Other Education Nina was educated in the urge deference technique and bladder retraining PT-OP-T Assessment and Plan Start: 02/09/24 12:48 Freq: Status: Active Protocol: Document 02/09/24 13:45 [facility] (Rec: 02/09/24 16:41 [facility] [id number]) Physical Therapy Assessment Rehab Potential Rehabilitation Potential Excellent Evaluation Complexity Number of Personal Factors/Comorbidities 0 Number of Body Systems Impaired 1-2 Clinical Presentation at Evaluation Stable Impairments Impairments Strength,Tone Other Impairments urinary urgency and urge incontinence Goals 2 Impairment Decreased pelvic floor endurance Short Term Goal (STG) Nina is able to sustain a pelvic floor contraction in supine x 10 seconds STG Duration 4 weeks Data Base Design Analyst Goal (LTG) Nina is able to sustain a pelvic floor contraction in standing x 5 seconds LTG Duration 8 weeks 1 Impairment urinary urgency with urge incontinence leaking up to 5 times per day Short Term Goal (STG) Nina is educated on the urge deference technique and bladder retraining STG Duration 4 weeks Mcfp Goal (LTG) Nina reports a overall reduction of urgency and urge incontinence symptoms LTG Duration 8 weeks Assessment Summary Assessment Nina is a 63 year old female referred to PT with urinary urge incontinence symptoms. She has started on Gemtesa for overactive bladder and she feels this is helping decrease urgency. Nina reports she will find that the urge hits her when she is walking [place] [address] and then when she sees the bathroom she often leaks on the way to the bathroom. The urge can also happen in the grocery store or at home when working in the kitchen. She does have a history of irritable bowel syndrome and has for a long time made sure she knows where the bathrooms are when she is out and about. Nina was educated today on the urge deference technique and bladder retraining. We also discussed bladder irritants. With pelvic floor examination Nina is able to contract all parker of the levator ani. She is weaker in the anterior pelvic floor. Endurance is decreased and Nina would benefit from improved endurance holds of the levator ani. She is a good candidate for PT. Physical Therapy Plan Frequency and Duration Frequency of Treatment 1x/Week Duration of treatment (weeks) 8 Plan of Care Start Date 02/09/24 Plan of Care End Date 04/05/24 Therapeutic Interventions Therapeutic Interventions Home Exercise Program, Neuromuscular Re-education, Patient/Caregiver Education, Self-Care/Home Management, Therapeutic Exercises Modalities Biofeedback Next Visit Focus/Plan Next Note Type Treatment Note Next Visit Plan Review urge deference technique given today and begin EMG biofeedback for pelvic floor endurance training.
--- NOTE | 2024-02-09 16:42 | PT.OPPOC ---
Physical, Occupational & Speech Therapy At [facility] Current Diagnoses Urge incontinence (02/09/24) Pelvic muscle wasting (02/09/24) Visit Care Team Role Provider Type Ynes Wild PA-C Family Provider Advanced E Commerce Retailer Specialty: Medical Address: [address] [place] [address], [phone] Email: Mony Walton MD Attending Provider Physician Primary Care Provider Referring Provider Specialty: Family Practice STUDY SPECIALIST Address: [facility] [place], [address] Email: [email or web address] Plan Of Care PT-OP-B Current Condition Start: 02/09/24 12:48 Freq: Status: Active Protocol: Document 02/09/24 13:47 [facility] (Rec: 02/09/24 14:22 [facility] [id number]) Current Condition History of Current Condition History of Current Condition symptoms started about 7 months ago and she is on medication so it has gotten better, prior to the medication she was getting sudden urges that she wouldn't have time to get to the bathroom. SHe is wearing pantyliners just in case and times like walking [facility] [place] if she feels she needs to go she isn 't able to make it to the bathroom. Prior Treatments and Tests history of USI with urethral lift in 2008 PT-OP-T Assessment and Plan Start: 02/09/24 12:48 Freq: Status: Active Protocol: Document 02/09/24 13:45 [facility] (Rec: 02/09/24 16:41 [facility] [id number]) Physical Therapy Assessment Rehab Potential Rehabilitation Potential Excellent Evaluation Complexity Number of Personal Factors/Comorbidities 0 Number of Body Systems Impaired 1-2 Clinical Presentation at Evaluation Stable Impairments Impairments Strength,Tone Other Impairments urinary urgency and urge incontinence Goals 2 Impairment Decreased pelvic floor endurance Short Term Goal (STG) Nina is able to sustain a pelvic floor contraction in supine x 10 seconds STG Duration 4 weeks Residential Goal (LTG) Nina is able to sustain a pelvic floor contraction in standing x 5 seconds LTG Duration 8 weeks 1 Impairment urinary urgency with urge incontinence leaking up to 5 times per day Short Term Goal (STG) Nina is educated on the urge deference technique and bladder retraining STG Duration 4 weeks Injection Maintenance Technician Goal (LTG) Nina reports a overall reduction of urgency and urge incontinence symptoms LTG Duration 8 weeks Assessment Summary Assessment Nina is a 63 year old female referred to PT with urinary urge incontinence symptoms. She has started on Gemtesa for overactive bladder and she feels this is helping decrease urgency. Nina reports she will find that the urge hits her when she is walking [place] [address] and then when she sees the bathroom she often leaks on the way to the bathroom. The urge can also happen in the grocery store or at home when working in the kitchen. She does have a history of irritable bowel syndrome and has for a long time made sure she knows where the bathrooms are when she is out and about. Nina was educated today on the urge deference technique and bladder retraining. We also discussed bladder irritants. With pelvic floor examination Nina is able to contract all parker of the levator ani. She is weaker in the anterior pelvic floor. Endurance is decreased and Nina would benefit from improved endurance holds of the levator ani. She is a good candidate for PT. Physical Therapy Plan Frequency and Duration Frequency of Treatment 1x/Week Duration of treatment (weeks) 8 Plan of Care Start Date 02/09/24 Plan of Care End Date 04/05/24 Therapeutic Interventions Therapeutic Interventions Home Exercise Program, Neuromuscular Re-education, Patient/Caregiver Education, Self-Care/Home Management, Therapeutic Exercises Modalities Biofeedback Next Visit Focus/Plan Next Note Type Treatment Note Next Visit Plan Review urge deference technique given today and begin EMG biofeedback for pelvic floor endurance training. Plan of Care Dates Plan of Care Start Date 02/09/24 Plan of Care End Date 04/05/24 Electronically Signed by: Antonina Garcia, PT 02/09/24 1605 If you are in agreement with this Plan of Care, please return a signed and dated copy. I have reviewed this Plan of Care and certify that the skilled therapy services above are required to meet the patient?s needs. Physician Signature Date Printed Name and Credentials Clinical Instructor Signature Printed Name and Credentials
--- NOTE | 2024-02-23 17:09 | PT.OTN ---
Current Diagnoses Urge incontinence (02/23/24) Pelvic muscle wasting (02/23/24) Physical Therapy Treatment Note PT-OP-A Visit Information Start: 02/09/24 12:48 Freq: Status: Active Protocol: Document 02/23/24 13:45 [facility] (Rec: 02/23/24 14:30 [facility] [id number]) Out-Patient Physical Therapy Visit Information Visit Information Visit Type Treatment Note Visit Start Time 13:45 Visit Stop Time 14:30 Visit Number 2 PT-OP-B Current Condition Start: 02/09/24 12:48 Freq: Status: Active Protocol: Document 02/09/24 13:47 [facility] (Rec: 02/09/24 14:22 [facility] [id number]) Current Condition History of Current Condition History of Current Condition symptoms started about 7 months ago and she is on medication so it has gotten better, prior to the medication she was getting sudden urges that she wouldn' have time to get to the bathroonm. SHe is wearing pantiliners just in case and times like walking [facility] if she feels she needs to go she isn 't able to make it to the bathroom. Prior Treatments and Tests history of USI with urethral lift in 2008 PT-OP-C Subjective Start: 02/09/24 12:48 Freq: Status: Active Protocol: Document 02/23/24 13:45 [facility] (Rec: 02/23/24 14:30 [facility] [id number]) OP-PT Subjective Patient Comments Patient Comments she has been able to do the holds and is up to 10-15 seconds urgency overall is much improved, she is on the medication but she has a couple of times where she needed to use the urge technique PT-OP-I Pelvic Floor Start: 02/09/24 12:48 Freq: Status: Active Protocol: Document 02/09/24 16:26 [facility] (Rec: 02/09/24 16:29 [facility] [id number]) Pelvic Floor Assessment Urine Pelvic Floor Surgery Yes: urethral sling Urinary Symptoms Urge Sensation Other Urinary Symptoms pt reports a strong urge sensation especially with grocery shoppign or walking around the loop at [facility]. As soon as she sees the restroom she has difficulty making to to the bathroom without leakage Leakage Size Small Leakage Cause Urge Other Leakage Causes walking to the toilet Leaks Per Day 5 ( is better now with the medication) Nocturia 0-1 Urine Pad Type Panty Liner Pelvic Clock Pelvic Clock 3-6 Tightness Contraction Ability Manual Muscle Testing Left 3 Manual Muscle Testing Right 3 Manual Muscle Testing Anterior 2 Manual Muscle Testing Posterior 3 Muscle Endurance (Seconds) 5 Comments Pelvic Floor Comments Decreased endurance contractions of the pelvic floor PT-OP-Q Treatments Start: 02/09/24 12:48 Freq: Status: Active Protocol: Document 02/23/24 13:45 [facility] (Rec: 02/23/24 14:30 [facility] [id number]) Therapeutic Exercises Supine Exercises pelvic floor long holds Comments 9.5 uv average max of 16.9 piriformis stretch Reps/Minutes hold 1-2 min modified pelvic floor squat Reps/Minutes hold 1-2 min pelvic floor long holds with adductor assist Supine Exercise Name able to relax to baseline Reps/Minutes x 10 reps Other Exercises modified down dog Reps/Minutes hold 1-2 min dynamic hamstring flossing Reps/Minutes x 10 reps PT-OP-T Assessment and Plan Start: 02/09/24 12:48 Freq: Status: Active Protocol: Document 02/23/24 13:45 [facility] (Rec: 02/23/24 14:30 [facility] [id number]) Physical Therapy Assessment Goals 2 Impairment Decreased pelvic floor endurance Short Term Goal (STG) Nina is able to sustain a pelvic floor contraction in supine x 10 seconds STG Duration 4 weeks Penitentiary Goal (LTG) Nina is able to sustain a pelvic floor contraction in standing x 5 seconds LTG Duration 8 weeks 1 Impairment urinary urgency with urge incontinence leaking up to 5 times per day Short Term Goal (STG) Nina is educated on the urge deference technique and bladder retraining STG Duration 4 weeks Penitentiary Goal (LTG) Nina reports a overall reduction of urgency and urge incontinence symptoms LTG Duration 8 weeks Assessment Summary Assessment only one time on her walk did she have a sense of urgency and the urge technique helped. Nina was able to fully relax her pelvic floor today with verbal cues and she got to baseline on EMG biofeedback . She is doing much better with endurance holds. Urgency has been decreased Physical Therapy Plan Frequency and Duration Frequency of Treatment 1x/Week Duration of treatment (weeks) 8 Plan of Care Start Date 02/09/24 Plan of Care End Date 04/05/24 Therapeutic Interventions Therapeutic Interventions Home Exercise Program, Neuromuscular Re-education, Patient/Caregiver Education, Self-Care/Home Management, Therapeutic Exercises Modalities Biofeedback Next Visit Focus/Plan Next Note Type Treatment Note Next Visit Plan review new stretches given today, pelvic floor endurance training and templates for eccentric control and coordination, diaphragmatic breathing
--- NOTE | 2024-03-06 16:20 | PT.OTN ---
Current Diagnoses Urge incontinence (03/06/24) Pelvic muscle wasting (03/06/24) Physical Therapy Treatment Note PT-OP-A Visit Information Start: 02/09/24 12:48 Freq: Status: Active Protocol: Document 03/06/24 15:22 [facility] (Rec: 03/06/24 16:20 [facility] [id number]) Out-Patient Physical Therapy Visit Information Visit Information Visit Type Treatment Note Visit Start Time 15:20 Visit Stop Time 16:00 Visit Number 3 Evaluation Information Evaluation Date 02/09/24 PT-OP-B Current Condition Start: 02/09/24 12:48 Freq: Status: Active Protocol: Document 02/09/24 13:47 [facility] (Rec: 02/09/24 14:22 [facility] [id number]) Current Condition History of Current Condition History of Current Condition symptoms started about 7 months ago and she is on medication so it has gotten better, prior to the medication she was getting sudden urges that she wouldn' have time to get to the bathroonm. SHe is wearing pantiliners just in case and times like walking [facility] if she feels she needs to go she isn 't able to make it to the bathroom. Prior Treatments and Tests history of USI with urethral lift in 2008 PT-OP-C Subjective Start: 02/09/24 12:48 Freq: Status: Active Protocol: Document 03/06/24 15:22 [facility] (Rec: 03/06/24 16:20 [facility] [id number]) OP-PT Subjective Patient Comments Patient Comments pt notes no urgency this week and no issues she can run water in the kitchen and delay the urge PT-OP-I Pelvic Floor Start: 02/09/24 12:48 Freq: Status: Active Protocol: Document 02/09/24 16:26 [facility] (Rec: 02/09/24 16:29 [facility] [id number]) Pelvic Floor Assessment Urine Pelvic Floor Surgery Yes: urethral sling Urinary Symptoms Urge Sensation Other Urinary Symptoms pt reports a strong urge sensation especially with grocery shoppign or walking around the loop at [facility]. As soon as she sees the restroom she has difficulty making to to the bathroom without leakage Leakage Size Small Leakage Cause Urge Other Leakage Causes walking to the toilet Leaks Per Day 5 ( is better now with the medication) Nocturia 0-1 Urine Pad Type Panty Liner Pelvic Clock Pelvic Clock 3-6 Tightness Contraction Ability Manual Muscle Testing Left 3 Manual Muscle Testing Right 3 Manual Muscle Testing Anterior 2 Manual Muscle Testing Posterior 3 Muscle Endurance (Seconds) 5 Comments Pelvic Floor Comments Decreased endurance contractions of the pelvic floor PT-OP-Q Treatments Start: 02/09/24 12:48 Freq: Status: Active Protocol: Document 03/06/24 15:22 [facility] (Rec: 03/06/24 16:20 [facility] [id number]) Therapeutic Exercises Supine Exercises templates for eccentric control Reps/Minutes 5 min pelvic floor long holds Supine Exercise Name standing Comments 12.3 and max of 21 piriformis stretch Reps/Minutes hold 1-2 min modified pelvic floor squat Reps/Minutes hold 1-2 min pelvic floor long holds with adductor assist Supine Exercise Name able to relax to baseline Reps/Minutes x 10 reps Other Exercises modified down dog Reps/Minutes hold 1-2 min dynamic hamstring flossing Reps/Minutes x 10 reps Self-Care/Home Management Treatment Education Patient Education Home Exercise Program Other Education review of home program, added in eccentric control and Nina was educated on the [employer] home EMG biofeedback unit PT-OP-T Assessment and Plan Start: 02/09/24 12:48 Freq: Status: Active Protocol: Document 03/06/24 15:22 [facility] (Rec: 03/06/24 16:20 [facility] [id number]) Physical Therapy Assessment Goals 2 Impairment Decreased pelvic floor endurance Short Term Goal (STG) Nina is able to sustain a pelvic floor contraction in supine x 10 seconds goal met STG Duration 4 weeks Checker Goal (LTG) Nina is able to sustain a pelvic floor contraction in standing x 5 seconds goal met, Nina is able to hold x 10 seconds now in standing LTG Duration 8 weeks 1 Impairment urinary urgency with urge incontinence leaking up to 5 times per day Short Term Goal (STG) Nina is educated on the urge deference technique and bladder retraining goal met STG Duration 4 weeks Long-Term Goal (LTG) Nina reports a overall reduction of urgency and urge incontinence symptoms goal met LTG Duration 8 weeks Assessment Summary Assessment Nina has met all her established goals for PT and has responded very well To PT. She is feeling independent with her exercise program and is not experiencing the urgency she was feeling. She feels much more in control of her bladder. Nina will be discharged from PT at this time Physical Therapy Plan Discharge Physical Therapy Discharge Reasons Goals Met
--- NOTE | 2024-03-06 16:20 | PT.OPDS ---
Current Diagnoses Urge incontinence (03/06/24) Pelvic muscle wasting (03/06/24) Visit Care Team Role Provider Type Ynes Wild PA-C Family Provider Advanced Plaster Applicator Specialty: Medical Address: [address] [place] [address], [id number] Email: Mony Walton MD Attending Provider Physician Primary Care Provider Referring Provider Specialty: Family Practice RADIOLOGY CT TECHNOLOGIST Address: [address], [address] Email: [email or web address] Visit Number Visit Number 3 Discharge Summary PT-OP-B Current Condition Start: 02/09/24 12:48 Freq: Status: Active Protocol: Document 02/09/24 13:47 [facility] (Rec: 02/09/24 14:22 [facility] [id number]) Current Condition History of Current Condition History of Current Condition symptoms started about 7 months ago and she is on medication so it has gotten better, prior to the medication she was getting sudden urges that she wouldn' have time to get to the bathroonm. SHe is wearing pantiliners just in case and times like walking [facility] if she feels she needs to go she isn 't able to make it to the bathroom. Prior Treatments and Tests history of USI with urethral lift in 2008 PT-OP-C Subjective Start: 02/09/24 12:48 Freq: Status: Active Protocol: Document 03/06/24 15:22 [facility] (Rec: 03/06/24 16:20 [facility] [id number]) OP-PT Subjective Patient Comments Patient Comments pt notes no urgency this week and no issues she can run water in the kitchen and delay the urge PT-OP-I Pelvic Floor Start: 02/09/24 12:48 Freq: Status: Active Protocol: Document 02/09/24 16:26 [facility] (Rec: 02/09/24 16:29 [facility] [id number]) Pelvic Floor Assessment Urine Pelvic Floor Surgery Yes: urethral sling Urinary Symptoms Urge Sensation Other Urinary Symptoms pt reports a strong urge sensation especially with grocery shoppign or walking around [place] at [facility]. As soon as she sees the restroom she has difficulty making to to the bathroom without leakage Leakage Size Small Leakage Cause Urge Other Leakage Causes walking to the toilet Leaks Per Day 5 ( is better now with the medication) Nocturia 0-1 Urine Pad Type Panty Liner Pelvic Clock Pelvic Clock 3-6 Tightness Contraction Ability Manual Muscle Testing Left 3 Manual Muscle Testing Right 3 Manual Muscle Testing Anterior 2 Manual Muscle Testing Posterior 3 Muscle Endurance (Seconds) 5 Comments Pelvic Floor Comments Decreased endurance contractions of the pelvic floor PT-OP-T Assessment and Plan Start: 02/09/24 12:48 Freq: Status: Active Protocol: Document 03/06/24 15:22 [facility] (Rec: 03/06/24 16:20 [facility] [id number]) Physical Therapy Assessment Goals 2 Impairment Decreased pelvic floor endurance Short Term Goal (STG) Nina is able to sustain a pelvic floor contraction in supine x 10 seconds goal met STG Duration 4 weeks Contour Band Saw Operator Vertical Goal (LTG) Nina is able to sustain a pelvic floor contraction in standing x 5 seconds goal met, Nina is able to hold x 10 seconds now in standing LTG Duration 8 weeks 1 Impairment urinary urgency with urge incontinence leaking up to 5 times per day Short Term Goal (STG) Nina is educated on the urge deference technique and bladder retraining goal met STG Duration 4 weeks Contour Band Saw Operator Vertical Goal (LTG) Nina reports a overall reduction of urgency and urge incontinence symptoms goal met LTG Duration 8 weeks Assessment Summary Assessment Nina has met all her established goals for PT and has responded very well To PT. She is feeling independent with her exercise program and is not experiencing the urgency she was feeling. She feels much more in control of her bladder. Nina will be discharged from PT at this time Physical Therapy Plan Discharge Physical Therapy Discharge Reasons Goals Met
== END 2024-03-15 08:56 | disposition home or self-care (01) ==
LOC: PHYS 15:15
PROVIDERS: Family Provider Physician Assistant; PCP Family Medicine; Referring Provider Family Medicine; Visit Provider Family Medicine
DX: N39.41 Urge incontinence (principal); N81.84 Pelvic muscle wasting
CPT/HCPCS: 97110; 97161; 97535

== ENCOUNTER → 2024-06-20 14:21 | Outpatient (CLI) | payer OTHER, SELFPAY ==
--- NOTE | 2024-06-20 14:22 | DI.CT.S_ITS ---
PROCEDURE: CT CHEST WO CON INDICATIONS: SOB, tachycardia TECHNIQUE: Noncontrast 5 mm thick sections acquired from the pulmonary apices to the posterior costophrenic angles. 1 mm lung window, 5 mm thick coronal and sagittal and 7 mm axial MIP reformats were then acquired. For radiation dose reduction, the following was used: automated exposure control, adjustment of mA and/or kV according to patient size. COMPARISON: None. FINDINGS: Image quality: Diagnostic. Thyroid: Within normal limits. Cardiac: Heart size within normal limits. No pericardial effusion. Aorta: Thoracic aortic diameter within normal limits. Pulmonary Artery: Main pulmonary artery diameter within normal limits. Lungs: No focal lung consolidation. Pleura: No pneumothorax or pleural effusion. Airways: The trachea and mainstem bronchi are patent. Lymph Nodes: No mediastinal, hilar, or axillary lymphadenopathy. Esophagus: Mild ingested debris within the distal esophagus. Bones: No acute osseous abnormality. Upper Abdomen: Within normal limits. IMPRESSION: Esophageal findings suggestive of gastroesophageal reflux disease. Otherwise, no acute CT abnormality of the chest. Dictated by: Luis M Peña M.D. on 06/20/2024 at 22:44 Approved by: Luis M Peña M.D. on 06/20/2024 at 22:46
== END ==
PROVIDERS: Family Provider Physician Assistant; PCP Family Medicine; Referring Provider Family Medicine; Visit Provider Family Medicine
DX: R06.02 Shortness of breath (principal); R00.0 Tachycardia, unspecified
CPT/HCPCS: 71250

== ENCOUNTER → 2024-06-21 07:21 | Outpatient (CLI) | payer OTHER, SELFPAY ==
[2024-06-21 08:06] LABS: Add Manual Diff / Slide Review NO; Basophils Absolute Auto 0 /uL (0-100); Basophils Percent Auto 0.9 % (0-2); Eosinophils Absolute Auto 100 /uL (0-450); Eosinophils Percent Auto 3.7 % (2-4); Hematocrit 33.4 % (36-46); Hemoglobin 11.6 g/dL (12.0-16.0); Lymphocytes Absolute Auto 1100 /uL (1100-4500); Lymphocytes Percent Auto 34.5 % (25-40); Mean Corpuscular HGB Conc 34.8 % (30-36); Mean Corpuscular Hemoglobin 30.2 PG (26-34); Mean Corpuscular Volume 86.8 fL (80-100); Monocytes Absolute Auto 300 /uL (0-900); Monocytes Percent Auto 9.9 % (3-14); Neutrophils Absolute Auto 1700 /uL (1500-7000); Platelet Count 180 X10^3/uL (150-400); Red Blood Cell Count 3.85 X10^6/uL (4.0-5.2); Red Cell Distribution Width 13.2 % (11.6-14.8); White Blood Cell Count 3.3 X10^3/uL (4.5-11.0)
[2024-06-21 08:27] LABS: HEMOLYSIS < 15 (0-50); Iron 103 ug/dL (37-170)
[2024-06-21 08:30] LABS: Alanine Aminotransferase 38 IU/L (<35); Albumin 4.5 g/dL (3.5-5.0); Albumin Globulin Ratio 2.1 (1.0-2.8); Alkaline Phosphatase 60 U/L (38-126); Aspartate Aminotransferase 34 IU/L (14-36); BUN Creatinine Ratio 13.1 (6-22); Bilirubin Total 0.5 mg/dL (0.2-1.3); Blood Urea Nitrogen 11 mg/dL (7-17); Calcium 9.9 mg/dL (8.4-10.2); Carbon Dioxide 26 mmol/L (22-32); Chloride 107 mmol/L (98-107); Cholesterol 175 mg/dL (140-199); Estimated Glomerular Filt Rate > 60 mL/min (>60); Globulin 2.1 g/dL (1.7-4.1); Glucose 101 mg/dL (80-110); HDL Cholesterol 90 mg/dL (40-60); HEMOLYSIS < 15 (0-50); LDL Cholesterol Calculated 66 mg/dL (<100); Potassium 4.1 mmol/L (3.4-5.1); Sodium 139 mmol/L (137-145); Total Protein 6.6 g/dL (6.3-8.2); Triglycerides 93 mg/dL (35-150)
[2024-06-21 08:37] LABS: Percent Iron Saturation 28 % (15-50); Total Iron Binding Capacity 367 ug/dL (265-497); Transferrin 304 mg/dL (206-381)
[2024-06-21 09:06] LABS: Ferritin 9 ng/mL (11-264)
[2024-06-21 09:37] LABS: Folate 13.3 ng/mL (2.76-20.0); Vitamin B12 311 pg/mL (239-931)
== END ==
PROVIDERS: Family Provider Physician Assistant; PCP Family Medicine; Referring Provider Family Medicine; Visit Provider Family Medicine
DX: R06.02 Shortness of breath (principal); R00.0 Tachycardia, unspecified; E78.5 Hyperlipidemia, unspecified; K58.9 Irritable bowel syndrome, unspecified; Z13.6 Encounter for screening for cardiovascular disorders; Z86.32 Personal history of gestational diabetes
CPT/HCPCS: 36415; 80053; 80061; 82607; 82728; 82746; 83540; 83550; 84443; 85025

== ENCOUNTER → 2024-06-25 09:09 | Outpatient (CLI) | payer OTHER, SELFPAY | PROVIDERS: Family Provider Physician Assistant; PCP Family Medicine; Referring Provider Family Medicine; Visit Provider Family Medicine | DX: R06.02 Shortness of breath (principal); J45.909 Unspecified asthma, uncomplicated; R94.2 Abnormal results of pulmonary function studies; J45.20 Mild intermittent asthma, uncomplicated | CPT/HCPCS: 94060; 94726; 94729 ==

== ENCOUNTER → 2024-06-25 13:36 | Outpatient (CLI) | payer OTHER, SELFPAY | PROVIDERS: Family Provider Physician Assistant; PCP Family Medicine; Referring Provider Family Medicine; Visit Provider Family Medicine | DX: R06.02 Shortness of breath (principal); R00.0 Tachycardia, unspecified | CPT/HCPCS: 93248 ==

== ENCOUNTER → 2025-02-18 08:12 | Outpatient (CLI) | payer MEDICARE, OTHER, SELFPAY ==
--- NOTE | 2025-02-18 08:15 | DI.MG.S_ITS ---
MM screening mammo BI: 02/18/2025. BI-RADS: 1 CLINICAL: 64-year old female for bilateral screening mammogram. Tyrer-Cuzick lifetime risk of 12.4%. Current reported family history of breast cancer: mother. PRIOR EXAMS 02/20/2024, 02/15/2023. MAMMOGRAPHY TECHNIQUE: 2D and 3D (tomosynthesis) digital mammographic views obtained, with additional images as needed for full coverage. Current study was also evaluated with a Computer Aided Detection (CAD) system. DENSITY C. The breasts are heterogeneously dense, which may obscure small masses. MAMMOGRAPHY FINDINGS Bilateral: No suspicious mass, asymmetry, microcalcification, or other abnormality seen. IMPRESSION: * No evidence of malignancy. RECOMMENDATIONS Bilateral * Annual screening mammography. OVERALL ASSESSMENT CATEGORY BI-RADS-1: Negative. The [employer] recommends annual screening mammography beginning at age 40 for women with average risk of breast cancer. ELECTRONICALLY SIGNED: Waleska Lugo M.D. on 02/18/2025 at 04:18:11 PM PT Interpreting Station ID: [id number]
== END ==
LOC: MAMMO 08:14
PROVIDERS: PCP Family Medicine; Referring Provider Family Medicine; Visit Provider Family Medicine
DX: Z12.31 Encounter for screening mammogram for malignant neoplasm of breast (principal); R92.333 Mammographic heterogeneous density, bilateral breasts; Z80.3 Family history of malignant neoplasm of breast
CPT/HCPCS: 77063; 77067